=== PATIENT | female | born 1960 | race Caucasian/White ===

== ENCOUNTER 2023-08-18 21:03 | Emergency (ER) | payer OTHER, SELFPAY ==
[2023-08-18 21:07] VITALS: BP 180/92; PULSE 84; RESP 16; TEMP 36.6; O2SAT 100; BMI 22.0
--- NOTE | 2023-08-18 21:18 | XR_ITS ---
[facility] [id number] Patient Name: SULEMAN NICOLAS MRN: [id number] date: 1960 Sex: F Assigned Patient Location: ER Current Patient Location: ER Accession/Order Number: [id number] Exam Date: 08/18/2023 21:28 Report Date: 08/18/2023 21:53 At the request of: JEFF SAMANIEGO Procedure: XR knee LT 3V EXAM: XR knee LT 3V HISTORY: fall, twisted COMPARISON: None. TECHNIQUE: 3 views FINDINGS: IMPRESSION: Small knee effusion. No fracture, dislocation, subluxation or osseous lesion. Narrowing of the medial femoral tibial compartment with medial osteophytes. The patellofemoral and lateral femorotibial compartment are unremarkable. Electronically authenticated by: EDUARDO SOTOMAYOR Date: 08/18/2023 21:53
--- NOTE | 2023-08-18 21:19 | ED.LOWEXI1 ---
HPI - Extremity Injury (Lower) General Chief Complaint: Extremity Injury, Lower Stated Complaint: Lower Extremity Injury Time Seen by Provider: 08/18/23 21:06 Source: patient Mode of arrival: Wheelchair Limitations: no limitations History of Present Illness HPI Narrative: 62-year-old female presents for pain to her left knee. She slipped in a grocery store on a grape and twisted her left knee and scraped the right ceron area. It's been more than ten years since she had a tetanus shot. She didn't hit her head. She complains of pain to the inferior and medial aspect of the left knee primarily. Both hips and both ankles do not hurt. The right knee does not hurt. This happened just before coming into the emergency department. Related Data Home Medications Medication Instructions Recorded Confirmed metoprolol succinate 25 mg mg PO 08/18/23 tablet,extended release 24 hr Previous Rx's Medication Instructions Recorded ibuprofen 800 mg tablet 800 mg PO Q8H PRN pain #20 tabs 08/18/23 Allergies Allergy/AdvReac Type Severity Reaction Status Date / Time codeine AdvReac Mild Nausea Verified 08/18/23 21:12 Review of Systems ROS Narrative A ten point review of systems is negative except as noted above. Exam Narrative Exam Narrative: Nurses note and vital signs reviewed and patient is not hypoxic. General: The patient appears well and in no apparent distress. Patient is resting comfortably on cart. Skin: Warm, dry, no pallor noted. There is no rash noted. Head: Normocephalic, atraumatic Eye: Normal conjunctiva, no drainage Ears, Nose, Mouth, and Throat: oral mucosa is moist. Nares patent. Cardiovascular: Regular Rate and Rhythm Respiratory: Patient is in no distress, no accessory muscle use Back: non-tender GI: nontender Musculoskeletal: both hips, both ankles, and the right knee are nontender. She has an abrasion on the anterior surface of the right lower leg. The left knee is stable. There is no obvious deformity. No bruising or abrasion at the left knee. Neurological: A&O, normal speech Psychiatric: Cooperative Constitutional Vital Signs, click to edit/add: Last Vital Signs Temp 98 F 08/18/23 21:07 Pulse 84 08/18/23 21:07 Resp 16 08/18/23 21:07 BP 180/92 H 08/18/23 21:07 Pulse Ox 100 08/18/23 21:07 O2 Del Method Room Air 08/18/23 21:07 Course Vital Signs Vital signs: Vital Signs Temperature 98 F 08/18/23 21:07 Pulse Rate 84 08/18/23 21:07 Respiratory Rate 16 08/18/23 21:07 Blood Pressure 180/92 H 08/18/23 21:07 Pulse Oximetry 100 08/18/23 21:07 Oxygen Delivery Method Room Air 08/18/23 21:07 Temperature 98 F 08/18/23 21:07 Pulse Rate 84 08/18/23 21:07 Respiratory Rate 16 08/18/23 21:07 Blood Pressure 180/92 H 08/18/23 21:07 Pulse Oximetry 100 08/18/23 21:07 Oxygen Delivery Method Room Air 08/18/23 21:07 MDM - Extremity Injury (Lower) MDM Narrative Medical decision making narrative: x-ray showed degenerative changes. Cornelius wrap applied and application checked by me and found to be appropriate, she is neurovascularly intact. Tetanus was ordered but she refuses. Treatment diagnosis and follow-up were discussed with the patient and her . Differential Diagnosis Differential diagnosis: Likely acute internal derangement of knee and other (fracture) Imaging Data left knee x-ray: Radiologist's impression: Procedure: XR knee LT 3V EXAM: XR knee LT 3V HISTORY: fall, twisted COMPARISON: None. TECHNIQUE: 3 views FINDINGS: IMPRESSION: Small knee effusion. No fracture, dislocation, subluxation or osseous lesion. Narrowing of the medial femoral tibial compartment with medial osteophytes. The patellofemoral and lateral femorotibial compartment are unremarkable. Electronically authenticated by: EDUARDO SOTOMAYOR Date: 08/18/2023 21:53 Discharge Plan Discharge Chief Complaint: Extremity Injury, Lower Clinical Impression: Knee sprain, Abrasion of leg Patient Disposition: Home, Self-Care Time of Disposition Decision: 22:34 Condition: Good Prescriptions / Home Meds: New ibuprofen 800 mg tablet 800 mg PO Q8H PRN (Reason: pain) Qty: 20 0RF No Action metoprolol succinate 25 mg tablet extended release 24 hr PO Instructions: Knee Sprain (ED), Abrasion (ED) Additional Instructions: Follow-up with Dr. Arroyo Stand Alone Forms: Portal Instructions Referrals: LOLA DUNNE [Primary Care Provider] - 1 week
[2023-08-18 22:30] VITALS: BP 160/87; PULSE 80; RESP 16; O2SAT 97
[2023-08-18] MEDS: IBUPROFEN 400 MG TABLET 800 MG PO (22:36)
== END 2023-08-18 22:35 | disposition home or self-care (01) ==
PROVIDERS: Emergency Provider Emergency Medicine; PCP Internal Medicine
DX: S83.92XA Sprain of unspecified site of left knee, initial encounter (principal); S80.811A Abrasion, right lower leg, initial encounter; W18.30XA Fall on same level, unspecified, initial encounter; X50.1XXA Overexertion from prolonged static or awkward postures, initial encounter
CPT/HCPCS: 73562; 99284

== ENCOUNTER 2024-09-10 10:52 | Outpatient (OUT) | payer OTHER, SELFPAY ==
--- NOTE | 2024-09-10 10:55 | MM_ITS ---
Patient Name: SULEMAN NICOLAS MR#: [id number] : 1960 Exam Date: 09/10/2024 Ordering Doctor: DR LOLA DUNNE M.D. RADIOLOGY REPORT PROCEDURE: MM TOMOSYNTHESIS SCREENING BI COMPARISON: MG MAMM SCREEN 3D PIERRE CAD, 11/17/2021. MG MAMM PIERRE SCRN W CAD DIG, 09/14/2013. MG MAMM PIERRE SCRN W CAD DIG, 07/11/2008. MG MAMM PIERRE SCRN W CAD DIG, 05/12/2005. INDICATIONS: Screening Calculator Name NCI Breast Cancer Risk Assessment Tool 5 Year Breast Cancer Risk 2.80% Lifetime Breast Cancer Risk 12.50% Personal Breast Cancer No Personal Ovarian Cancer No Treatments None Family Cancers Mother with breast cancer at age 75. LOCATION: [facility] BREAST COMPOSITION: There are scattered areas of fibroglandular density. FINDINGS: DIAGNOSTIC CATEGORY 1--NEGATIVE. RIGHT BREAST: No significant suspicious finding. No significant change has occurred. LEFT BREAST: No significant suspicious finding. No significant change has occurred. RECOMMENDATIONS: ROUTINE MAMMOGRAM AND CLINICAL EVALUATION IN 12 MONTHS. PLEASE NOTE: A NORMAL MAMMOGRAM DOES NOT EXCLUDE THE POSSIBILITY OF BREAST CANCER. A CLINICALLY SUSPICIOUS PALPABLE LUMP SHOULD BE BIOPSIED. Dictated by: Rigo Mejia M.D. on 09/12/2024 at 13:20 Approved by: Rigo Mejia M.D. on 09/12/2024 at 13:22
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
== END 2024-09-10 10:53 | disposition home or self-care (01) ==
LOC: MAMMO 10:52
PROVIDERS: PCP Internal Medicine; Visit Provider Internal Medicine
DX: Z12.31 Encounter for screening mammogram for malignant neoplasm of breast (principal); Z80.3 Family history of malignant neoplasm of breast
CPT/HCPCS: 77063; 77067

== ENCOUNTER 2025-04-17 09:46 | Outpatient (OUT) | payer SELFPAY ==
--- OUTSIDE RECORDS SUMMARY | 2025-03-13 14:39 | XMS_ITS | Clinical Summary ---
Author Organization [facility] Address [address] [place] [address] Care Team Providers Care Materials Specialist Name Role Phone Chencho Dillard MD Primary Care Provider [phone] Chencho Dillard MD Unavailable [phone] Allergies Active Allergy Reactions Criticality Noted Date Comments Codeine Nausea Only 06/23/2023 Medications rosuvastatin (Crestor) 5 MG tabletIndications:Pure hypercholesterolemia Take 1 tablet (5 mg) by mouth Daily 90 tablet 3 024 Active Additional Information Patient not taking.Reported on 12/20/2024 metoprolol succinate XL (Toprol-XL) 25 MG 24 hr tabletIndications:Prima ry hypertension TAKE 1 TABLET BY MOUTH IN THE MORNING and ONE TABLET BY MOUTH BEFORE bedtime 100 tablet 3 025 Active Active Problems Problem Noted Date Diagnosed Date Primary osteoarthritis of left knee 09/08/2023 Pure hypercholesterolemia 09/08/2023 Chronic dacryocystitis 06/23/2023 History of hysterectomy 06/23/2023 Nuclear senile cataract 06/23/2023 Ocular hypertension 06/23/2023 Palpitations 06/23/2023 Primary hypertension 06/23/2023 Resolved Problems Problem Noted Date Diagnosed Date Resolved Date Type 2 diabetes mellitus wit hout complication, without long-term current use of insulin 07/27/2023 11/28/2024 Encounters Date Type Department Care Team Description 02/20/2025 Abstract [facility] [address] [place] [address] [place] [id number] Chencho Dillard MD 01/22/2025 Abstract [facility] [address] [place] [address] [place] [id number] Chencho Dillard MD 12/20/2024 10:00 AM EDT Office Visit [facility] [address] [address] [place] [id number] Chencho Dillard MD Pain of both shoulder joints (Primary Dx); Abnormal laboratory test result; Pain of shoulder girdle 12/20/2024 Bamboo flowsheet [facility] [address] [address] [place] [id number] Chencho Dillard MD 12/20/2024 Travel 12/19/2024 Travel from Last 3 Months Family History Medical History Relation Name Comments Heart disease Father Parent Diabetes Mother Parent Relation Name Status Comments Father Parent Mother Parent Alive Social History Tobacco Use Types Packs/Day Years Used Date Smoking Tobacco: Never Smokeless Tobacco: Never Tobacco Cessation:Counseling Given: Not Answered Alcohol Use Standard Drinks/Week Comments Not Currently 0 (1 standard drink = 0.6 oz pur e alcohol) B1300 Health Literacy Answer Date Recor ded How often do you need to hav e someone help you when you read instructions, pamphlets, or other written material from your doctor or pharmacy? Never 12/19/2024 Humiliation, Afraid, Rape, and Kick questionnair e Answer Date Recorded Within the last year, have y ou been afraid of your partner or ex-partner? Patient declined 12/19/2024 Within the last year, have y ou been humiliated or emotionally abused in other ways by your partner or ex-partner? Patient declined 12/19/2024 Within the last year, have y ou been kicked, hit, slapped, or otherwise physically hurt by your partner or ex-partner? Patient declined 12/19/2024 Within the last year, have y ou been raped or forced to have any kind of sexual activity by your partner or ex-partner? Patient declined 12/19/2024 Social Connection and Isolat ion Panel [NHANES] Answer Date Recorded In a typical week, how many times do you talk on the phone with family, friends, or neighbors? Once a week 12/19/2024 How often do you get togethe r with friends or relatives? Once a week 12/19/2024 How often do you attend chur ch or catholic services? More than 4 times per year 12/19/2024 Do you belong to any clubs o r organizations such as advent groups, unions, fraternal or athletic groups, or school groups? Yes 12/19/2024 How often do you attend meet ings of the clubs or organizations you belong to? More than 4 times per year 12/19/2024 Are you , , di vorced, , never , or living with a partner? 12/19/2024 AUDIT-C Answer Date Recorded Q1: How often do you have a drink containing alc ohol? Monthly or less 12/19/2024 Q2: How many drinks containi ng alcohol do you have on a typical day when you are drinking? 1 or 2 12/19/2024 Q3: How often do you have si x or more drinks on one occasion? Never 12/19/2024 Overall Financial Resource Strain (CARDIA) Answe r Date Recorded How hard is it for you to pa y for the very basics like food, housing, medical care, and heating? Somewhat hard 12/19/2024 PHQ-2 Answer Date Recorded Patient Health Questionnaire-2 Score 0 12/20/2024 [facility] - Occupational Stress Questionnaire Answer Date Recorded Do you feel stress - tense, restless, nervous, or anxious, or unable to sleep at night because your mind is troubled all the time - these days? Not at all 12/19/2024 Exercise Vital Sign Answer Date Recorde d On average, how many days pe r week do you engage in moderate to strenuous exercise (like a brisk walk)? 2 days 12/19/2024 On average, how many minutes do you engage in exercise at this level? 30 min 12/19/2024 Hunger Vital Sign Answer Date Recorded Within the past 12 months, y ou worried that your food would run out before you got the money to buy more. Never true 12/20/19 25 Within the past 12 months, t he food you bought just didn't last and you didn't have money to get more. Never true 12/19/2024 PRAPARE - Transportation Answer Date Re corded In the past 12 months, has l ack of transportation kept you from medical appointments or from getting medications? No 11/22 In the past 12 months, has l ack of transportation kept you from meetings, work, or from getting things needed for daily living? No 12/19/2024 Housing Stability Vital Sign Answer Epifanio e Recorded In the last 12 months, was t here a time when you were not able to pay the mortgage or rent on time? No 06/24/2023 Number of Places Lived in the Last Year Not on f ile 06/24/2023 In the last 12 months, was t here a time when you did not have a steady place to sleep or slept in a snf (including now)? No 06/24/2023 Housing Stability Vital Sign Answer Epifanio e Recorded In the last 12 months, was t here a time when you were not able to pay the mortgage or rent on time? Patient declined 12/20/19 25 Number of Times Moved in the Last Year Not on fi le 12/19/2024 At any time in the past 12 m [facility], were you homeless or living in a snf (including now)? Patient declined 12/19/2024 Comments Unknown Sex and Gender Information Value Date Recorded Sex Assigned at Not on file Legal Sex Female 7:11 PM EDT Gender Identity Not on file Sexual Orientation Not on file Last Filed Vital Signs Vital Sign Reading Time Taken Comments Blood Pressure 132/74 12/20/2024 9:56 AM EDT Pulse 92 12/20/2024 9:56 AM EDT Temperature - - Respiratory Rate - - Oxygen Saturation 99% 12/20/2024 9:56 AM EDT Inhaled Oxygen Concentration - - Weight 56.2 kg (124 lb) 12/20/2024 9:56 AM EDT Height 160 cm (5' 3 ) 12/20/2024 9:56 AM EDT Body Mass Index 21.97 12/20/2024 9:56 AM EDT Plan of Treatment Health Maintenance Due Date Last Done Comments CT Colonography 1961 FIT 1961 FOBT 1960 Sigmoidoscopy 1960 Colonoscopy 02/05/2024 02/04/2014 Diabetes: Hemoglobin A1C 02/27/2025 025, 06/07/2024, 12/12/2023, Additional history exists Influenza Vaccine (#1) 2025 Diabetes: Urine Protein Screening 06/08/2025 024, 09/08/2023 Mammogram 09/12/2025 09/12/2024, 03/2 04/2022, 11/18/2017, Additional history exists Diabetes: Retinopathy Screening 12/08/2025 Colorectal Cancer Screening 12/19/2027 FIT-DNA 12/19/2027 12/18/2024 Procedures Procedure Name Priority Date/Time Associated Diagnosis Comments LAB COLOGUARD COLON CANCER SCREEN Routine 12/18/2024 9:00 AM EDT Encounter for screening for malignant neoplasm of colon POCT GLYCATED HEMOGLOBIN, TOTAL Routine 11/28/2024 11:18 AM EDT Prediabetes MM TOMOSYNTHESIS SCREENING BI 09/12/2024 1:22 PM EST MICROALBUMIN / CREATININE URINE RATIO Routine 06/08/2024 8:46 AM EDT Type 2 diabetes mellitus without complication, without long-term current use of insulin (HCC) DIABETIC RETINOPATHY SCREENING - OU - BOTH EYES Routine 12/09/2023 COLONOSCOPY Routine 02/04/2014 12:00 PM EDT from Last 3 Months or Most Recently Relevant to Health Maintenance Results * Cologuard?? colon cancer screening (12/18/2024 9:00 AM EDT) NONINV COLON CA DNA+OCC BLD SCRN STL-IMP Negative Negative 12/24/2024 6:43 AM EDT [employer] (CLIA #:[id number]) Comment: The Cologuard (TM) test was performed on this specimen. NEGATIVE TEST RESULT. A negative Cologuard result indicates a low likelihood that a colorectal cancer (CRC) or advanced adenoma (adenomatous polyps with more advanced pre-malignant features) is present. The chance that a person with a negative Cologuard test has a colorectal cancer is less than 1 in 1500 (negative predictive value >99.9%) or has an advanced adenoma is less than 5.3% (negative predictive value 94.7%). These data are based on a prospective cross-sectional study of 10,000 individuals at average risk for colorectal cancer who were screened with both Cologuard and colonoscopy. (Ramirez Ortiz al, N Engl J Med 2014;370(14):1286- 1297) The normal value (reference range) for this assay is negative. COLOGUARD RE-SCREENING RECOMMENDATION: Periodic colorectal cancer screening is an important part of preventive healthcare for asymptomatic individuals at average risk for colorectal cancer. Following a negative Cologuard result, the [place] [employer] and U.S. Multi-Society Task Force screening guidelines recommend a Cologuard re-screening interval of 3 years. References: [place] [employer] Guideline for Colorectal Cancer Screening: https://www.cancer.org/cancer/jqund-lbsajs-utglox/tbtcizsdt-irhhhrflc-xdjpzvj/ac s-rec ommendations.html.; Rich DK, Aki CHARLES, Grisel WinnK, Colorectal Cancer Screening: Recommendations for Physicians and Patients from the U.S. Multi-Society Task Force on Colorectal Cancer Screening , Am J Gastroenterology 2017; 112:6571-1755. TEST DESCRIPTION: Composite algorithmic analysis of stool DNA-biomarkers with hemoglobin immunoassay. Quantitative values of individual biomarkers are not reportable and are not associated with individual biomarker result reference ranges. Cologuard is intended for colorectal cancer screening of adults of either sex, 45 years or older, who are at average-risk for colorectal cancer (CRC). Cologuard has been approved for use by the U.S. FDA. The performance of Cologuard was established in a cross sectional study of average-risk adults aged 50-84. Cologuard performance in patients ages 45 to 49 years was estimated by sub-group analysis of near-age groups. Colonoscopies performed for a positive result may find as the most clinically significant lesion: colorectal cancer [4.0%], advanced adenoma (including sessile serrated polyps greater than or equal to 1cm diameter) [20%] or non- advanced adenoma [31%]; or no colorectal neoplasia [45%]. These estimates are derived from a prospective cross-sectional screening study of 10,000 individuals at average risk for colorectal cancer who were screened with both Cologuard and colonoscopy. (Ramirez Salcedo et al, N Engl J Med 2014;370(14):0702-4405.) Cologuard may produce a false negative or false positive result (no colorectal cancer or precancerous polyp present at colonoscopy follow up). A negative Cologuard test result does not guarantee the absence of CRC or advanced adenoma (pre-cancer). The current Cologuard screening interval is every 3 years. ([place] [employer] and U.S. Multi-Society Task Force). Cologuard performance data in a 10,000 patient pivotal study using colonoscopy as the reference method can be accessed at the following location: www.[employer].com/results. Additional description of the Cologuard test process, warnings and precautions can be found at www.cologuard.com. Stool specimen (specimen) 12/18/2024 9:00 AM EDT 12/19/2024 1:04 PM EDT us Chencho Dillard MD LAB MOLECULAR DIAGNOSTICS [facility] Final Result .[employer] (CLIA #:[id number]) [address] [address], [employer] (CLIA #:[id number]) [address] [place] [address] * POCT Glycated hemoglobin, total (11/28/2024 11:18 AM EDT) Hemoglobin A1C 5.8 Blood 11/28/2024 11:1 8 AM EDT us Chencho Dillard MD POINT OF CARE TEST ENTER/EDIT ORDERABLES Final Result * MM TOMOSYNTHESIS SCREENING BI (09/12/2024 1:22 PM EST) Anatomical Region Laterality Modality Other 09/12/2024 1:22 PM EST Narrative 09/12/2024 1:23 PM EST [facility] [place] [id number] Mammography Report Signed Patient: SULEMAN NICOLAS MR#: [id number] : 1960 Acct:[id number] Age/Sex: 63 / F ADM Date: 09/10/24 Loc: MAMMO Attending Dr: CHENCHO DILLARD Ordering Physician: CHENCHO DILLARD Results: Date of Service: 09/10/24 Follow Up: Procedure(s): MM tomosynthesis screening BI Accession Number(s): [id number] cc: VIBHANEVAEHCHENCHO Patient Name: SULEMAN NICOLAS MR#: [id number] : 1960 Exam Date: 09/10/2024 Ordering Doctor: DR CHENCHO DILLARD M.D. RADIOLOGY REPORT PROCEDURE: MM TOMOSYNTHESIS SCREENING BI COMPARISON: MG MAMM SCREEN 3D PIERRE CAD, 11/17/2021. MG MAMM PIERRE SCRN W CAD DIG, 09/14/2013. MG MAMM PIERRE SCRN W CAD DIG, 07/11/2008. MG MAMM PIERRE SCRN W CAD DIG, 05/12/2005. INDICATIONS: Screening Calculator Name NCI Breast Cancer Risk Assessment Tool 5 Year Breast Cancer Risk 2.80% Lifetime Breast Cancer Risk 12.50% Personal Breast Cancer No Personal Ovarian Cancer No Treatments None Family Cancers Mother with breast cancer at age 75. LOCATION: [facility] BREAST COMPOSITION: There are scattered areas of fibroglandular density. FINDINGS: DIAGNOSTIC CATEGORY 1--NEGATIVE. RIGHT BREAST: No significant suspicious finding. No significant change has occurred. LEFT BREAST: No significant suspicious finding. No significant change has occurred. RECOMMENDATIONS: ROUTINE MAMMOGRAM AND CLINICAL EVALUATION IN 12 MONTHS. PLEASE NOTE: A NORMAL MAMMOGRAM DOES NOT EXCLUDE THE POSSIBILITY OF BREAST CANCER. A CLINICALLY SUSPICIOUS PALPABLE LUMP SHOULD BE BIOPSIED. Dictated by: Rigo Mejia M.D. on 09/12/2024 at 13:20 Approved by: Rigo Mejia M.D. on 09/12/2024 at 13:22 Dictated By: Rigo Mejia M.D. Signed By: 09/12/24 1323 DD/ 1322 TD/TT: Press Operator Helper: Procedure Note Radiology, Radiologist, MD - 09/12/2024 [place] [address] Mammography Report Signed Patient: SULEMAN NICOLAS LMR#: [id number] : 1960cct:[id number] Age/Sex: 63 / FADM Date: 09/10/24 Loc: MAMMO Attending Dr: CHENCHO DILLARD Ordering Physician: CHENCHO DILLARDResults: Date of Service: 09/10/24Follow Up: Procedure(s): MM tomosynthesis screening BI Accession Number(s): [id number] cc: VIBHANEVAEHCHENCHO Patient Name: SULEMAN NICOLAS MR#: [id number] : 1960 Exam Date: 09/10/2024 Ordering Doctor: DR CHENCHO DILLARD M.D. RADIOLOGY REPORT PROCEDURE: MM TOMOSYNTHESIS SCREENING BI COMPARISON: MG MAMM SCREEN 3D PIERRE CAD, 11/17/2021. MG MAMM PIERRE SCRN WCAD DIG, 09/14/2013. MG MAMM PIERRE SCRN W CAD DIG, 07/11/2008. MG MAMM PIERRE SCRNW CAD DIG, 05/12/2005. INDICATIONS: Screening Calculator Name NCI Breast Cancer Risk Assessment Tool 5 Year Breast Cancer Risk 2.80% Lifetime Breast Cancer Risk 12.50% Personal Breast Cancer No Personal Ovarian Cancer No Treatments None Family Cancers Mother with breast cancer at age 75. LOCATION: [facility] BREAST COMPOSITION: There are scattered areas of fibroglandulardensity. FINDINGS: DIAGNOSTIC CATEGORY 1--NEGATIVE. RIGHT BREAST: No significant suspicious finding. No significant changehas occurred. LEFT BREAST: No significant suspicious finding. No significant changehas occurred. RECOMMENDATIONS: ROUTINE MAMMOGRAM AND CLINICAL EVALUATION IN 12 MONTHS. PLEASE NOTE: A NORMAL MAMMOGRAM DOES NOT EXCLUDE THE POSSIBILITY OFBREAST CANCER. A CLINICALLY SUSPICIOUS PALPABLE LUMP SHOULD BE BIOPSIED. Dictated by: Rigo Mejia M.D. on 09/12/2024 at 13:20 Approved by: Rigo Mejia M.D. on 09/12/2024 at 13:22 Dictated By: Rigo Mejia M.D. Signed By:09/12/24 1323 DD/ 1322 TD/TT: Press Operator Helper: us Chencho Dillard MD [facility] Final Result * Microalbumin / creatinine urine ratio (06/08/2024 8:46 AM EDT) CREATININE, RANDOM URINE 70 20 - 275 mg/dL [facility] ALBUMIN, URINE 0.6 See Note: mg/dL [facility] Comment: Reference Range: Reference Range Not established ALBUMIN/CREATININE RATIO, RANDOM URINE 9 <30 mg/g creat [facility] Comment: The ADA defines abnormalities in albumin excretion as follows: Albuminuria Category Result (mg/g creatinine) Normal to Mildly increased <30 Moderately increased 30-299 Severely increased > OR = 300 The ADA recommends that at least two of three specimens collected within a 3-6 month period be abnormal before considering a patient to be within a diagnostic category. Urine Urine specimen obtained by clean catch procedure / Unknown 06/08/2024 8:46 AM EDT 06/08/2024 3:17 PM EDT Narrative Resulting Agency Comment Performing Organization Information Site ID: QPT Name: [facility] [employer] [facility] Address: [address] [place] [address], [address] [place] [id number] Director: Sebastian Urbano MD us Chencho Dillard MD LAB URINE ORDERABLES Final Res ult Performing Organization Address City/State/[facility] Co de Phone Number [facility] * Diabetic Retinopathy Screening - OU - Both Eyes (12/09/2023) RESULTS NDR Anatomical Region Laterality Modality Head Other 12/09/2023 us Chencho Dillard MD OPHTH PHOTOGRAPHY Final Result * Colonoscopy (02/04/2014 12:00 PM EDT) Anatomical Region Laterality Modality Endoscopy 02/04/2014 12:0 0 PM EDT Narrative 02/04/2014 12:00 PM EDT PERFORMED AT [facility] LOCATION:[id number] IBS,divericulosis,int,hemorrhoid Procedure Note CONVERSION, GENERIC - 01/06/[address] [facility] LOCATION:[id number] IBS,divericulosis,int,hemorrhoid us Generic Conversion MD ENDOSCOPY PROCEDURE ORDERA BLES Final Result from Last 3 Months or Most Recently Relevant to Health Maintenance Insurance [employer] Care Teams Materials Specialist Relationship Specialty Start Date End Date Chencho Dillard MD [address] [facility] [address] [place] [address] PCP - General Internal Medicine 12/28/22 Chencho Dillard MD [address] [facility] [address] [place] [address] PCP - Medical [place] [employer] 08/22/23 08/21/99
--- OUTSIDE RECORDS SUMMARY | 2025-03-13 14:39 | XMS_ITS | Encounter Summary ---
Author Organization [facility] Address [address] [place] [address] Care Team Providers Care Microbiology Supervisor Name Role Phone Chencho Dillard MD Primary Care Provider [phone] Chencho Dillard MD Unavailable [phone] Encounter Details Date Type Department Care Team (Late st Contact Info) Description 01/22/2025 Abstract [facility] [address] [facility] [address] [place] [id number] Chencho Dillard MD [address] [facility] [address] [place], [place] [id number] Social History Tobacco Use Types Packs/Day Years Used Date Smoking Tobacco: Never Smokeless Tobacco: Never Alcohol Use Standard Drinks/Week Comments Not Currently [...] 12/19/2024 How often do you attend chur or druze services? More than 4 times per year 12/19/2024 Do you belong to any clubs o r organizations such as sabianist groups, unions, fraternal or athletic groups, or [...] Recorded Patient Health Questionnaire-2 Score 0 12/20/2024 [facility] Occup[facility] ional Health - Occupational Stress [...] place to sleep or slept in a half-way (including now)? No 06/24/2023 Housing Stability Vital Sign Answer Epifanio e Recorded In the last 12 months, was t here a time when you were not able to pay the mortgage or rent on time? Patient declined 12/20/19 25 Number of Times Moved in the Last Year Not on fi le 12/19/2024 At any time in the past 12 m [facility], were you homeless or living in a half-way (including now)? Patient declined 12/19/2024 Comments Unknown Sex and Gender Information Value Date Recorded Sex Assigned at Not on file Legal Sex Female 7:11 PM EDT Gender Identity Not on file Sexual Orientation Not on file documented as of this encounter Plan of Treatment Not on file documented as of this encounter Visit Diagnoses Not on filedocumented in this encounter Care Teams Microbiology Supervisor Relationship Specialty Start Date End Date Chencho Dillard MD [address] [facility] [address] [place] [address] PCP - General Internal Medicine 12/28/22 Chencho Dillard MD [address] [facility] [address] [place] [address] PCP - Medical [place] [employer] 08/22/23 08/21/99 documented as of this encounter
--- OUTSIDE RECORDS SUMMARY | 2025-03-13 14:39 | XMS_ITS | Encounter Summary ---
Author Organization [facility] Address [address] [place] [address] Care Team Providers Care Shopper'S Aide Name Role Phone Chencho Dillard MD Primary Care Provider [phone] Chencho Dillard MD Unavailable Encounter Details Date Type Department Care Team (Late st Contact Info) Description 12/13/2023 Abstract [facility] [address] [facility] 110 [place] [id number] Chencho Dillard MD [address] [facility] 110 [place], [place] [id number] Social History Tobacco Use Types Packs/Day Years Used Date Smoking Tobacco: Never Smokeless Tobacco: Never Alcohol Use Standard Drinks/Week Comments Not Currently 0 (1 standard drink = 0.6 oz pur e alcohol) Humiliation, Afraid, Rape, and Kick questionnair e Answer Date Recorded Within the last year, have y ou been afraid of your partner or ex-partner? Patient declined 06/24/2023 Within the last year, have y ou been humiliated or emotionally abused in other ways by your partner or ex-partner? Yes 06/24/2023 Within the last year, have y ou been kicked, hit, slapped, or otherwise physically hurt by your partner or ex-partner? Patient declined 06/24/2023 Within the last year, have y ou been raped or forced to have any kind of sexual activity by your partner or ex-partner? Patient declined 06/24/2023 Social Connection and Isolat ion Panel [NHANES] Answer Date Recorded In a typical week, how many times do you talk on the phone with family, friends, or neighbors? More than three times a week 06/24/2023 How often do you get togethe r with friends or relatives? Twice a week 06/24/2023 How often do you attend chur ch or presybeterian services? More than 4 times per year 06/24/2023 Do you belong to any clubs o r organizations such as methodist groups, unions, fraternal or athletic groups, or school groups? Yes 06/24/2023 How often do you attend meet ings of the clubs or organizations you belong to? More than 4 times per year 06/24/2023 Are you , , di vorced, , never , or living with a partner? 06/24/2023 AUDIT-C Answer Date Recorded Q1: How often do you have a drink containing alc ohol? 2-4 times a month 06/24/2023 Q2: How many drinks containi ng alcohol do you have on a typical day when you are drinking? 1 or 2 06/24/2023 Q3: How often do you have si x or more drinks on one occasion? Never 06/24/2023 Overall Financial Resource Strain (CARDIA) Answe r Date Recorded How hard is it for you to pa y for the very basics like food, housing, medical care, and heating? Not very hard 06/24/2023 [facility] - Occupational Stress Questionnaire Answer Date Recorded Do you feel stress - tense, restless, nervous, or anxious, or unable to sleep at night because your mind is troubled all the time - these days? Not at all 06/24/2023 Exercise Vital Sign Answer Date Recorde d On average, how many days pe r week do you engage in moderate to strenuous exercise (like a brisk walk)? 1 day 06/24/2023 On average, how many minutes do you engage in exercise at this level? 50 min 06/24/2023 Hunger Vital Sign Answer Date Recorded Within the past 12 months, y ou worried that your food would run out before you got the money to buy more. Patient declined Within the past 12 months, t he food you bought just didn't last and you didn't have money to get more. Patient declined 10/2022 PRAPARE - Transportation Answer Date Re corded In the past 12 months, has l ack of transportation kept you from medical appointments or from getting medications? No 10/2022 In the past 12 months, has l ack of transportation kept you from meetings, work, or from getting things needed for daily living? No 06/24/2023 Housing Stability Vital Sign Answer [...] place to sleep or slept in a alf (including now)? No 06/24/2023 Comments Unknown Sex and Gender Information Value Date Recorded Sex Assigned at Not on file Legal Sex Female 7:11 PM EDT Gender Identity Not on file Sexual Orientation Not on file documented as of this encounter Plan of Treatment Not on file documented as of this encounter Visit Diagnoses Not on filedocumented in this encounter Care Teams Shopper'S Aide Relationship Specialty Start Date End Date Chencho Dillard MD [address] [facility] 110 [place] [address] PCP - General Internal Medicine 12/28/22 Chencho Dillard MD [address] [facility] [address] [place] [address] PCP - Medical [employer] 08/22/23 08/21/99 documented as of this encounter
--- OUTSIDE RECORDS SUMMARY | 2025-03-13 14:39 | XMS_ITS | Encounter Summary ---
Author Organization [facility] Address [address] [place] [address] Care Team Providers Care Fur Dry Cleaner Hand Name Role Phone Chencho Dillard MD Primary Care Provider [phone] Chencho Dillard MD Unavailable [phone] Encounter Details Date Type Department Care Team (Late st Contact Info) Description 09/12/2024 Clinisync Result Encounter [facility] External Department Unsolicited Chencho Dillard MD [address] [facility] 110 [place] [address] Social History Tobacco Use Types Packs/Day Years [...] 06/24/2023 How often do you attend chur or confucianist services? More than 4 times per year 06/24/2023 Do you belong to any clubs o r organizations such as confucianism groups, unions, fraternal or athletic groups, or [...] care, and heating? Not very hard 06/24/2023 [facility]at ional Health [...] place to sleep or slept in a mcfp (including now)? No 06/24/2023 Comments Unknown Sex and Gender Information Value Date Recorded Sex Assigned at Not on file Legal Sex Female 7:11 PM EDT Gender Identity Not on file Sexual Orientation Not on file documented as of this encounter Plan of Treatment Not on file documented as of this encounter Procedures Procedure Name Priority Date/Time Associated Diagnosis Comments MM TOMOSYNTHESIS SCREENING BI 09/12/2024 1:22 PM EST documented in this encounter Results * MM TOMOSYNTHESIS SCREENING BI (09/12/2024 1:22 PM EST) Anatomical Region Laterality Modality Other 09/12/2024 1:22 PM EST Narrative 09/12/2024 1:23 [place] [address] Mammography Report Signed Patient: SULEMAN NICOLAS MR#: [id number] : 1960 Acct:[id number] Age/Sex: 63 / F ADM Date: 09/10/24 Loc: MAMMO Attending Dr: CHENCHO DILLARD Ordering Physician: CHENCHO DILLARD Results: Date of Service: 09/10/24 Follow Up: Procedure(s): MM tomosynthesis screening BI Accession Number(s): [id number] cc: CHENCHO DILLARD Patient Name: SULEMAN NICOLAS MR#: [id number] : 1960 Exam Date: 09/10/2024 Ordering Doctor: [...] breast cancer at age 76. LOCATION: [facility] BREAST COMPOSITION: There are scattered areas [...] Signed By: 09/12/24 1323 DD/ 1322 TD/TT: Automated Weaver: Procedure Note Radiology, Radiologist, MD - 09/12/2024 [place] [address] Mammography Report Signed Patient: SULEMAN NICOLAS LMR#: [id number] : 1960cct:[id number] Age/Sex: 63 / FADM Date: 09/10/24 Loc: MAMMO Attending Dr: CHENCHO DILLARD Ordering Physician: CHENCHO DILLARDResults: Date of Service: 09/10/24Follow Up: Procedure(s): MM tomosynthesis screening BI Accession Number(s): [id number] cc: CHENCHO DILLARD Patient Name: SULEMAN NICOLAS MR#: [id number] : 1960 Exam Date: 09/10/2024 Ordering Doctor: [...] breast cancer at age 76. LOCATION: [facility] BREAST COMPOSITION: There are scattered areas [...] M.D. Signed By:09/12/24 1323 DD/ 1322 TD/TT: Automated Weaver: Chencho Dillard MD [facility] Final Result documented in this encounter Visit Diagnoses Not on filedocumented in this encounter Care Teams Fur Dry Cleaner Hand Relationship Specialty Start Date End Date Chencho Dillard MD [address] [facility] 110 [place] [address] PCP - General Internal Medicine 12/28/22 Chencho Dillard MD [address] [facility] 110 [place] [address] PCP - Medical [place] [employer] 08/22/23 08/21/99 documented as of this encounter
--- OUTSIDE RECORDS SUMMARY | 2025-03-13 14:39 | XMS_ITS | Clinical Summary ---
Author Organization [employer] s [employer] Address [id number] [address] [place] [address] Care Team Providers Care Import Customer Service Manager Name Role Phone Chencho Dillard MD Primary Care Provider [phone] Allergies No known active allergies Medications No known medications Family History Medical History Relation Name Comments Breast cancer Mother Relation Name Status Comments Mother Social History Tobacco Use Types Packs/Day Years Used Date Smoking Tobacco: Never Assessed Childcare Answer Date Recorded Childcare Unknown 01/31/2019 Employment Answer Date Recorded Employment Unknown 01/31/2019 Purpose - Life Answer Date Recorded Purpose and direction in life Unknown Comments No Sex and Gender Information Value Date Recorded Sex Assigned at Not on file Legal Sex Female 11:26 AM EDT Gender Identity Not on file Sexual Orientation Not on file Last Filed Vital Signs Vital Sign Reading Time Taken Comments Blood Pressure 169/73 06/25/2021 5:52 PM EDT Pulse 102 06/25/2021 7:57 PM EDT Temperature 37.7 C (99.9 F) 06/25/2021 5:52 PM EDT Respiratory Rate 19 06/25/2021 7:57 PM EDT Oxygen Saturation 98% 06/25/2021 7:57 PM EDT Inhaled Oxygen Concentration - - Weight 56.2 kg (124 lb) 06/25/2021 5:52 PM EDT Height 160 cm (5' 3 ) 06/25/2021 5:52 PM EDT Body Mass Index 21.97 06/25/2021 5:52 PM EDT Plan of Treatment Health Maintenance Due Date Last Done Comments Depression Screening 1973 Tobacco Screening 1973 Adult BMI Screening 1979 DTaP,Tdap and Td Vaccines (1 - Tdap) 1980 Zoster (Shingles) Vaccine (1 of 2) 2011 Influenza Vaccine 04/22/2025 [employer] Not on file Insurance [place] [facility] Care Teams Import Customer Service Manager Relationship Specialty Start Date End Date Chencho Dillard MD [facility] 110 [place] [phone] PCP - General Internal Medicine 11/18/17
--- OUTSIDE RECORDS SUMMARY | 2025-03-13 14:39 | XMS_ITS | Encounter Summary ---
Author Organization [facility] Address [address] [place] [address] Care Team Providers Care Assistant Professor Of Biology Name Role Phone Chencho Dillard MD Primary Care Provider [phone] Chencho Dillard MD Unavailable [phone] Encounter Details Date Type Department Care Team (Late st Contact Info) Description 07/28/2023 Abstract [facility] [address] [facility] 110 [place] [phone] Chencho Dillard MD [address] [facility] 110 [place] [address] Social History Tobacco Use Types Packs/Day Years [...] often do you attend chur ch or yazidi services? More than 4 times per year 06/24/2023 Do you belong to any clubs o r organizations such as jew groups, unions, fraternal or athletic groups, or [...] care, and heating? Not very hard 06/24/2023 [facility] Occupat ional Health - [...] place to sleep or slept in a halfway (including now)? No 06/24/2023 Comments Unknown Sex and Gender Information Value Date Recorded Sex Assigned at Not on file Legal Sex Female 7:11 PM EDT Gender Identity Not on file Sexual Orientation Not on file COVID-19 Exposure Response Date Recorded In the last 10 days, have yo u been in contact with someone who was confirmed or suspected to have Coronavirus/COVID-19? No / Unsure 07/20/2023 8:54 AM EST documented as of this encounter Plan of Treatment Not on file documented as of this encounter Visit Diagnoses Not on filedocumented in this encounter Care Teams Assistant Professor Of Biology Relationship Specialty Start Date End Date Chencho Dillard MD [address] [facility] 110 [place] [address] PCP - General Internal Medicine 12/28/22 Chencho Dillard MD [address] [facility] 110 [place] [address] PCP - Medical [place] [employer] 08/22/23 08/21/99 documented as of this encounter
--- OUTSIDE RECORDS SUMMARY | 2025-03-13 14:39 | XMS_ITS | Encounter Summary ---
Author Organization [facility] Address [address] [place] [address] Care Team Providers Care Home Visitor Home Base Head Start Name Role Phone Chencho Dillard MD Primary Care Provider [phone] Chencho Dillard MD Unavailable [phone] Encounter Details Date Type Department Care Team (Late st Contact Info) Description 12/13/2023 Abstract [facility] [address] [facility] 110 [place] [phone] Chencho Dillard MD [address] [facility] 110 [place], [place] [id number] Social History Tobacco Use Types Packs/Day Years [...] often do you attend chur ch or alevism services? More than 4 times per year 06/24/2023 Do you belong to any clubs o r organizations such as religion groups, unions, fraternal or athletic groups, or [...] care, and heating? Not very hard 06/24/2023 [facility] - Occupational Stress [...] in a half-way (including now)? No 06/24/2023 Comments Unknown Sex and Gender Information Value Date Recorded Sex Assigned at Not on file Legal Sex Female 7:11 PM EDT Gender Identity Not on file Sexual Orientation Not on file documented as of this encounter Plan of Treatment Not on file documented as of this encounter Visit Diagnoses Not on filedocumented in this encounter Care Teams Home Visitor Home Base Head Start Relationship Specialty Start Date End Date Chencho Dillard MD [address] [facility] 110 [place] [address] PCP - General Internal Medicine 12/28/22 Chencho Dillard MD [address] [facility] [address] [place] [address] PCP - Medical [place] [employer] 08/22/23 08/21/99 documented as of this encounter
--- OUTSIDE RECORDS SUMMARY | 2025-03-13 14:39 | XMS_ITS | Encounter Summary ---
Author Organization [facility] Address [address] [place] [address] Care Team Providers Care Manager Medicare Marketing Name Role Phone Chencho Dillard MD Primary Care Provider [phone] Chencho Dillard MD Unavailable [phone] Encounter Details Date Type Department Care Team (Late st Contact Info) Description 08/09/2024 Abstract [facility] [address] [facility] 110 [place] [phone] Chencho Dillard MD [address] [facility] 110 [place], [place] [phone] Social History Tobacco Use Types Packs/Day Years [...] any clubs o r organizations such as jainism groups, unions, fraternal or athletic groups, or [...] care, and heating? Not very hard 06/24/2023 [facility] of Occupat ional Health - Occupational Stress [...] on filedocumented in this encounter Care Teams Manager Medicare Marketing Relationship Specialty Start Date End Date Chencho Dillard MD [address] [facility] 110 [place] [address] PCP - General Internal Medicine 12/28/22 Chencho Dillard MD [address] [facility] [address] [place] [address] PCP - Medical [place] [employer] 08/22/23 08/21/99 documented as of this encounter
--- OUTSIDE RECORDS SUMMARY | 2025-03-13 14:40 | XMS_ITS | Encounter Summary ---
Author Organization [facility] Address [address] [facility] [place] [address] Care Team Providers Care Process Improvement Consultant Name Role Phone Chencho Dillard MD Primary Care Provider [phone] Chencho Dillard MD Unavailable [phone] Encounter Details Date Type Department Care Team (Late st Contact Info) Description 08/19/2023 Orders Only [facility] [address] [facility] [address] [place] [address] A, Unknown Practice [address] [place] [phone] Social History Tobacco Use Types Packs/Day Years [...] often do you attend chur ch or latter-day services? More than 4 times per year 06/24/2023 Do you belong to any clubs o r organizations such as baptism groups, unions, fraternal or athletic groups, or [...] care, and heating? Not very hard 06/24/2023 [facility] Occupat ional Health - Occupational [...] place to sleep or slept in a fdc (including now)? No 06/24/2023 Comments Unknown Sex [...] Procedure Name Priority Date/Time Associated Diagnosis Comments XR KNEE 3 VIEWS LEFT Routine 08/18/2023 8:12 AM EST documented in this encounter Results * XR knee 3 views left (08/18/2023 8:12 AM EST) Anatomical Region Laterality Modality Lower Extremities, Knee [facility] Practice A IMG XR PROCEDURES Final Resul t documented in this encounter Visit Diagnoses Not on filedocumented in this encounter Care Teams Process Improvement Consultant Relationship Specialty Start Date End Date Chencho Dillard MD [address] [facility] [address] [place] [address] PCP - General Internal Medicine 12/28/22 Chencho Dillard MD [address] [facility] [address] [place] [address] PCP - Medical [place] [employer] 08/22/23 08/21/99 documented as of this encounter
--- OUTSIDE RECORDS SUMMARY | 2025-03-13 14:40 | XMS_ITS | Encounter Summary ---
Author Organization [facility] Address [address] [place] [address] Care Team Providers Care Pelt Dropper Name Role Phone Chencho Dillard MD Primary Care Provider [phone] Chencho Dillard MD Unavailable [phone] Encounter Details Date Type Department Care Team (Late st Contact Info) Description 02/20/2025 Abstract [facility] [address] [facility] 110 [place] [phone] Chencho Dillard MD [address] [facility] 110 [place], [place] [phone] Social History Tobacco Use Types Packs/Day Years [...] How often do you attend chur or quaker services? More than 4 times per year [...] Recorded Patient Health Questionnaire-2 Score 0 12/20/2024 [facility] Occupat ional Health - Occupational [...] place to sleep or slept in a residential (including now)? No 06/24/2023 Housing Stability Vital Sign Answer Epifanio e Recorded In the last 12 months, was t here a time when you were not able to pay the mortgage or rent on time? Patient declined 12/20/19 25 Number of Times Moved in the Last Year Not on fi le 12/19/2024 At any time in the past 12 m [facility], were you homeless or living in a residential (including now)? Patient declined 12/19/2024 Comments Unknown Sex and Gender Information Value Date Recorded Sex Assigned at Not on file Legal Sex Female 7:11 PM EDT Gender Identity Not on file Sexual Orientation Not on file documented as of this encounter Plan of Treatment Not on file documented as of this encounter Visit Diagnoses Not on filedocumented in this encounter Care Teams Pelt Dropper Relationship Specialty Start Date End Date Chencho Dillard MD [address] [facility] 110 [place] [address] PCP - General Internal Medicine 12/28/22 Chencho Dillard MD [address] [facility] 110 [place] [address] PCP - Medical [place] [employer] 08/22/23 08/21/99 documented as of this encounter
--- OUTSIDE RECORDS SUMMARY | 2025-03-13 14:40 | XMS_ITS | Encounter Summary ---
Author Organization [facility] Address [address] [place] [address] Care Team Providers Care Material Manager Name Role Phone Chencho Dillard MD Primary Care Provider [phone] Chencho Dillard MD Unavailable Encounter Details Date Type Department Care Team (Late st Contact Info) Description 08/19/2023 Abstract [facility] [address] [facility] 110 [place] [phone] Chencho Dillard MD [address] [facility] 110 [place] [address] Social History Tobacco Use Types Packs/Day Years [...] often do you attend chur ch or episcopalian services? More than 4 times per year 06/24/2023 Do you belong to any clubs o r organizations such as temple groups, unions, fraternal or athletic groups, or [...] care, and heating? Not very hard 06/24/2023 [facility] Occupat ional Health - Occupational Stress [...] place to sleep or slept in a intermediate (including now)? No 06/24/2023 Comments Unknown Sex [...] on filedocumented in this encounter Care Teams Material Manager Relationship Specialty Start Date End Date Chencho Dillard MD [address] [facility] 110 [place] [address] PCP - General Internal Medicine 12/28/22 Chencho Dillard MD [address] [facility] 110 [place] [address] PCP - Medical [place] [employer] 08/22/23 08/21/99 documented as of this encounter
--- NOTE | 2025-04-17 09:47 | XR_ITS ---
[address] [place] [id number] Patient Name: SULEMAN NICOLAS MRN: [id number] date: 1960 Sex: F Assigned Patient Location: [facility] Current Patient Location: [facility] Accession/Order Number: [id number] Exam Date: 04/17/2025 10:02 Report Date: 04/17/2025 11:01 At the request of: JAYNE WHYTE Procedure: XR chest 2V PA AND LATERAL CHEST: CLINICAL HISTORY: Muscle Pain, Elevated CRP COMPARISON: None There is no focal parenchymal consolidation, effusion or pneumothorax. The cardiac, hilar and mediastinal silhouettes are within normal limits. There is no vascular congestion. The visualized bony thorax is intact. Mild endplate spurring is present at the spine. XR/XR chest 2V IMPRESSION: NO ACUTE CARDIOPULMONARY ABNORMALITY. Impression dictated by: Macie Lanza M.D. 04/17/2025 11:01 AM Dictation Location: [place] [address] Electronically authenticated by: [id number] Y Date: 04/17/2025 11:01
--- OUTSIDE RECORDS SUMMARY | 2025-04-17 09:48 | XMS_ITS | Encounter Summary ---
Author Organization [facility] Address [address] [facility] [place] [address] Care Team Providers Care Protective Signal Operations Supervisor Name Role Phone Chencho Dillard MD Primary Care Provider [phone] Chencho Dillard MD Unavailable [phone] Encounter Details Date Type Department Care Team (Late st Contact Info) Description 01/22/2025 Abstract [facility] [address] [facility] 110 [place] [phone] Chencho Dillard MD [address] [facility] 110 [place] [address] Social History Tobacco Use Types Packs/Day Years [...] How often do you attend chur or tenriism services? More than 4 times per year 12/19/2024 Do you belong to any clubs o r organizations such as yazidism groups, unions, fraternal or athletic groups, or [...] Recorded Patient Health Questionnaire-2 Score 0 12/20/2024 [facility] Occupat ional Health - Occupational [...] place to sleep or slept in a custodial (including now)? No 06/24/2023 Housing Stability Vital Sign Answer Epifanio e Recorded In the last 12 months, was t here a time when you were not able to pay the mortgage or rent on time? Patient declined 12/20/19 25 Number of Times Moved in the Last Year Not on fi le 12/19/2024 At any time in the past 12 m [facility], were you homeless or living in a custodial (including now)? Patient declined 12/19/2024 Comments Unknown Sex and Gender Information Value Date Recorded Sex Assigned at Not on file Legal Sex Female 7:11 PM EDT Gender Identity Not on file Sexual Orientation Not on file documented as of this encounter Plan of Treatment Not on file documented as of this encounter Visit Diagnoses Not on filedocumented in this encounter Care Teams Protective Signal Operations Supervisor Relationship Specialty Start Date End Date Chencho Dillard MD [address] [facility] 110 [place] [address] PCP - General Internal Medicine 12/28/22 Chencho Dillard MD [address] [facility] 110 [place] [address] PCP - Medical [place] [employer] 08/22/23 08/21/99 documented as of this encounter
--- OUTSIDE RECORDS SUMMARY | 2025-04-17 09:48 | XMS_ITS | Encounter Summary ---
Author Organization [facility] Address [address] [facility] [email or web address] [place] [address] Care Team Providers Care Sr. Director Product Management Name Role Phone Chencho Dillard MD Primary Care Provider [phone] Chencho Dillard MD Unavailable [phone] Encounter Details Date Type Department Care Team (Late st Contact Info) Description 07/28/2023 Abstract [facility] [address] [facility] 110 [place] [phone] Chencho Dillard MD [address] [facility] 110 [place] [address] Social History Tobacco Use Types Packs/Day Years [...] often do you attend chur ch or anabaptist services? More than 4 times per year 06/24/2023 Do you belong to any clubs o r organizations such as bahai groups, unions, fraternal or athletic groups, or [...] care, and heating? Not very hard 06/24/2023 [facility] Occupat ional Health - Occupational [...] place to sleep or slept in a assisted (including now)? No 06/24/2023 Comments Unknown Sex [...] on filedocumented in this encounter Care Teams Sr. Director Product Management Relationship Specialty Start Date End Date Chencho Dillard MD [address] [place] [address] [place] [address] PCP - General Internal Medicine 12/28/22 Chencho Dillard MD [address] [place] [address] [place] [address] PCP - Medical [place] [employer] 08/22/23 08/21/99 documented as of this encounter
--- OUTSIDE RECORDS SUMMARY | 2025-04-17 09:48 | XMS_ITS | Encounter Summary ---
Author Organization [facility] Address [address] [facility] [address] Care Team Providers Care Purse Seiner Name Role Phone Chencho Dillard MD Primary Care Provider [phone] Chencho Dillard MD Unavailable [phone] Encounter Details Date Type Department Care Team (Late st Contact Info) Description 09/12/2024 Clinisync Result Encounter N[facility]S External Department Unsolicited Chencho Dillard MD [address] [facility] 110 [place] [address] Social History Tobacco Use Types Packs/Day Years [...] How often do you attend chur or denominational services? More than 4 times per year 06/24/2023 Do you belong to any clubs o r organizations such as episcopal groups, unions, fraternal or athletic groups, or [...] care, and heating? Not very hard 06/24/2023 [facility] of Occupat ional Health [...] place to sleep or slept in a detention (including now)? No 06/24/2023 Comments Unknown Sex [...] EST Narrative 09/12/2024 1:23 [place] [address] Mammography Report Signed Patient: SULEMAN NICOLAS MR#: [id number] : 1960 Acct:[id number] Age/Sex: 63 / F ADM Date: 09/10/24 Loc: MAMMO Attending Dr: CHENCHO DILLARD Ordering Physician: CHENCHO DILLARD Results: Date of Service: 09/10/24 Follow Up: Procedure(s): MM tomosynthesis screening BI Accession Number(s): [id number] cc: CHENCHO DILLARD Patient Name: SULEMAN NICOLAS MR#: [id number] : 1960 Exam Date: 09/10/2024 Ordering Doctor: [...] breast cancer at age 76. LOCATION: [facility] BREAST COMPOSITION: There are scattered areas of [...] Signed By: 09/12/24 1323 DD/ 1322 TD/TT: Geographic Information Systems Analyst: Procedure Note Radiology, Radiologist, MD - 09/12/2024 [place] [address] Mammography Report Signed Patient: SULEMAN NICOLAS LMR#: [id number] : 1960cct:[id number] Age/Sex: 63 / FADM Date: 09/10/24 Loc: MAMMO Attending Dr: CHENCHO DILLARD Ordering Physician: CHENCHO DILLARDResults: Date of Service: 09/10/24Follow Up: Procedure(s): MM tomosynthesis screening BI Accession Number(s): [id number] cc: CHENCHO DILLARD Patient Name: SULEMAN NICOLAS MR#: [id number] : 1960 Exam Date: 09/10/2024 Ordering Doctor: [...] breast cancer at age 76. LOCATION: [facility] BREAST COMPOSITION: There are scattered areas of [...] M.D. Signed By:09/12/24 1323 DD/ 1322 TD/TT: Geographic Information Systems Analyst: Chencho Dillard MD [facility] Final Result documented in this encounter Visit Diagnoses Not on filedocumented in this encounter Care Teams Purse Seiner Relationship Specialty Start Date End Date Chencho Dillard MD [address] [facility] 110 [place] [address] PCP - General Internal Medicine 12/28/22 Chencho Dillard MD [address] [facility] 110 [place] [address] PCP - Medical [place] [employer] 08/22/23 08/21/99 documented as of this encounter
--- OUTSIDE RECORDS SUMMARY | 2025-04-17 09:48 | XMS_ITS | Encounter Summary ---
Author Organization [facility] Address [address] [facility] [facility] [address] [place] [address] Care Team Providers Care Academic Support Specialist Name Role Phone Chencho Dillard MD Primary Care Provider [phone] Chencho Dillard MD Unavailable [phone] Encounter Details Date Type Department Care Team (Late st Contact Info) Description 12/13/2023 Abstract [facility] [place] [facility] [address] [facility] 110 [place] [phone] Chencho Dillard MD [address] [facility] 110 [place] [address] Social History Tobacco Use Types Packs/Day Years [...] often do you attend chur ch or orthodox services? More than 4 times per year 06/24/2023 Do you belong to any clubs o r organizations such as judaism groups, unions, fraternal or athletic groups, or [...] care, and heating? Not very hard 06/24/2023 [facility] of Occupat ional Health - Occupational Stress [...] place to sleep or slept in a skilled nursing (including now)? No 06/24/2023 Comments Unknown Sex and Gender Information Value Date Recorded Sex Assigned at Not on file Legal Sex Female 7:11 PM EDT Gender Identity Not on file Sexual Orientation Not on file documented as of this encounter Plan of Treatment Not on file documented as of this encounter Visit Diagnoses Not on filedocumented in this encounter Care Teams Academic Support Specialist Relationship Specialty Start Date End Date Chencho Dillard MD [address] [facility] 110 [place] [address] PCP - General Internal Medicine 12/28/22 Chencho Dillard MD [address] [facility] 110 [place] [address] PCP - Medical [place] [employer] 08/22/23 08/21/99 documented as of this encounter
--- OUTSIDE RECORDS SUMMARY | 2025-04-17 09:48 | XMS_ITS | Encounter Summary ---
Author Organization [facility] Address [address] [place] [address] [place] [address] Care Team Providers Care Folder Inspector Name Role Phone Chencho Dillard MD Primary Care Provider [phone] Chencho Dillard MD Unavailable Encounter Details Date Type Department Care Team (Late st Contact Info) Description 08/09/2024 Abstract [facility] [place] [facility] [address] [facility] 110 [place] [phone] Chencho Dillard MD 112 [facility] 110 [place] [address] Social History Tobacco Use Types Packs/Day Years [...] often do you attend chur ch or mormon services? More than 4 times per year 06/24/2023 Do you belong to any clubs o r organizations such as holiness groups, unions, fraternal or athletic groups, or [...] care, and heating? Not very hard 06/24/2023 [facility] of Occupat ional Health - [...] place to sleep or slept in a correction (including now)? No 06/24/2023 Comments Unknown Sex and Gender Information Value Date Recorded Sex Assigned at Not on file Legal Sex Female 7:11 PM EDT Gender Identity Not on file Sexual Orientation Not on file documented as of this encounter Plan of Treatment Not on file documented as of this encounter Visit Diagnoses Not on filedocumented in this encounter Care Teams Folder Inspector Relationship Specialty Start Date End Date Chencho Dillard MD [address] [facility] 110 [place] [address] PCP - General Internal Medicine 12/28/22 Chencho Dillard MD [address] [facility] 110 [place] [address] PCP - Medical [place] [employer] 08/22/23 08/21/99 documented as of this encounter
--- OUTSIDE RECORDS SUMMARY | 2025-04-17 09:48 | XMS_ITS | Encounter Summary ---
Author Organization [facility] Address [address] [facility] [address] [place] [address] Care Team Providers Care Air Conditioning Engineer Name Role Phone Chencho Dillard MD Primary Care Provider Chencho Dillard MD Unavailable [phone] Encounter Details Date Type Department Care Team (Late st Contact Info) Description 03/14/2025 Abstract [facility] [place] [facility] [address] [facility] 110 [place] [phone] Chencho Dillard MD 112 [facility] 110 [place] [address] Social History Tobacco Use Types Packs/Day Years [...] How often do you attend chur or spiritism services? More than 4 times per year 12/19/2024 Do you belong to any clubs o r organizations such as rastafarian groups, unions, fraternal or athletic groups, or [...] Recorded Patient Health Questionnaire-2 Score 0 12/20/2024 [facility] of Occupat ional Health - [...] place to sleep or slept in a nursing home (including now)? No 06/24/2023 Housing Stability Vital Sign Answer Epifanio e Recorded In the last 12 months, was t here a time when you were not able to pay the mortgage or rent on time? Patient declined 12/20/19 25 Number of Times Moved in the Last Year Not on fi le 12/19/2024 At any time in the past 12 m [facility], were you homeless or living in a nursing home (including now)? Patient declined 12/19/2024 Comments Unknown Sex and Gender Information Value Date Recorded Sex Assigned at Not on file Legal Sex Female 7:11 PM EDT Gender Identity Not on file Sexual Orientation Not on file documented as of this encounter Plan of Treatment Not on file documented as of this encounter Visit Diagnoses Not on filedocumented in this encounter Care Teams Air Conditioning Engineer Relationship Specialty Start Date End Date Chencho Dillard MD 112 [facility] 110 [place] [address] PCP - General Internal Medicine 12/28/22 Chencho Dillard MD [address] [facility] 110 [place] [address] PCP - Medical [place] [employer] 08/22/23 08/21/99 documented as of this encounter
--- OUTSIDE RECORDS SUMMARY | 2025-04-17 09:48 | XMS_ITS | Clinical Summary ---
Author Organization [employer] Address [id number] [address] [place] [address] Care Team Providers Care Hair Baler Name Role Phone Chencho Dillard MD Primary Care Provider [phone] Allergies No known active allergies Medications No [...] 04/22/2025 Medical Devices Not on file Insurance [employer] [facility] Care Teams Hair Baler Relationship Specialty Start Date End Date Chencho Dillard MD [facility] [address] [place] [phone] PCP - General Internal Medicine 11/18/17
--- OUTSIDE RECORDS SUMMARY | 2025-04-17 09:49 | XMS_ITS | Encounter Summary ---
Author Organization [facility] Address [address] [facility] [place] [address] Care Team Providers Care Automatic Operator Name Role Phone Chencho Dillard MD Primary Care Provider [phone] Chencho Dillard MD Unavailable [phone] Encounter Details Date Type Department Care Team (Late st Contact Info) Description 02/20/2025 Abstract [facility] [place] [facility] [address] [facility] 110 [place] [phone] Chencho Dillard MD [address] [facility] 110 [place] [address] Social History Tobacco Use Types Packs/Day Years [...] How often do you attend chur or gnosticism services? More than 4 times per year 12/19/2024 Do you belong to any clubs o r organizations such as orthodoxy groups, unions, fraternal or athletic groups, or [...] Recorded Patient Health Questionnaire-2 Score 0 12/20/2024 [facility] of Occupat ional Health - Occupational [...] in a alf (including now)? No 06/24/2023 Housing Stability Vital Sign Answer Epifanio e Recorded In the last 12 months, was t here a time when you were not able to pay the mortgage or rent on time? Patient declined 12/20/19 25 Number of Times Moved in the Last Year Not on fi le 12/19/2024 At any time in the past 12 m [facility], were you homeless or living in a alf (including now)? Patient declined 12/19/2024 Comments Unknown Sex and Gender Information Value Date Recorded Sex Assigned at Not on file Legal Sex Female 7:11 PM EDT Gender Identity Not on file Sexual Orientation Not on file documented as of this encounter Plan of Treatment Not on file documented as of this encounter Visit Diagnoses Not on filedocumented in this encounter Care Teams Automatic Operator Relationship Specialty Start Date End Date Chencho Dillard MD [address] [facility] 110 [place] [address] PCP - General Internal Medicine 12/28/22 Chencho Dillard MD [address] [facility] 110 [place] [address] PCP - Medical [place] [employer] 08/22/23 08/21/99 documented as of this encounter
--- OUTSIDE RECORDS SUMMARY | 2025-04-17 09:49 | XMS_ITS | Clinical Summary ---
Author Organization [facility] Address [address] [place] [address] Care Team Providers Care Automatic Buffing Wheel Former Name Role Phone Chencho Dillard MD Primary Care Provider [phone] Chencho Dillard MD Unavailable [phone] Allergies Active Allergy Reactions Criticality Noted Date [...] Encounters Date Type Department Care Team Description 03/14/2025 Abstract [facility] [address] [place] 110 [place] [phone] Chencho Dillard MD 02/20/2025 Abstract [facility] [address] [facility] 110 [place] [phone] Chencho Dillard MD 01/22/2025 Abstract [facility] [address] [facility] [place] [phone] Chencho Dillard MD from Last 3 Months Family History Medical [...] How often do you attend chur or mormon services? More than 4 times per year 12/19/2024 Do you belong to any clubs o r organizations such as latter-day groups, unions, fraternal or athletic groups, or [...] Recorded Patient Health Questionnaire-2 Score 0 12/20/2024 [facility] Occupat ional [facility] - Occupational Stress Questionnaire Answer Date Recorded [...] place to sleep or slept in a care home (including now)? No 06/24/2023 Housing Stability Vital Sign Answer Epifanio e Recorded In the last 12 months, was t here a time when you were not able to pay the mortgage or rent on time? Patient declined 12/20/19 Number of Times Moved in the Last Year Not on fi le 12/19/2024 At any time in the past 12 m [facility], were you homeless or living in a care home (including now)? Patient declined 12/19/2024 Comments [...] Screening 06/08/2025 024, 09/08/2023 Mammogram 09/12/2025 09/12/2024, 10/21, 11/18/2017, Additional history exists Diabetes: Retinopathy Screening [...] STL-IMP Negative Negative 12/24/2024 6:43 AM EDT [employer] (CLIA #:[id number]) Comment: The Cologuard (TM) test was performed [...] screened with both Cologuard and colonoscopy. (Ramirez Cartagena, N Engl J Med 2014;370(14):1286- 1297) The normal value (reference range) for this assay is negative. COLOGUARD RE-SCREENING RECOMMENDATION: Periodic colorectal cancer screening is an important part of preventive healthcare for asymptomatic individuals at average risk for colorectal cancer. Following a negative Cologuard result, the [place] [employer] and U.S. Multi-Society Task Force screening guidelines recommend a Cologuard re-screening interval of 3 years. References: [place] [employer] Guideline for Colorectal Cancer Screening: https://www.cancer.org/cancer/lnrzm-rcluro-qrlath/xeghtqgeh-cvdgdliwd-sfgkdvn/ac s-rec ommendations.html.; Rich DK, Aki CHARLES, Grisel WinnK, Colorectal Cancer Screening: Recommendations for Physicians and Patients from the U.S. Multi-Society Task Force on Colorectal Cancer Screening , Am J Gastroenterology 2017; 112:4827-4203. TEST DESCRIPTION: Composite algorithmic analysis of stool [...] screened with both Cologuard and colonoscopy. (Ramirez Cartagena, N Engl J Med 2014;370(14):2816-3049.) Cologuard may produce a false negative or false positive result (no colorectal cancer or precancerous polyp present at colonoscopy follow up). A negative Cologuard test result does not guarantee the absence of CRC or advanced adenoma (pre-cancer). The current Cologuard screening interval is every 3 years. ([place] [employer] and U.S. Multi-Society Task Force). Cologuard performance data in a 10,000 patient pivotal study using colonoscopy as the reference method can be accessed at the following location: www.[employer].com/results. Additional description of the Cologuard test process, warnings and precautions can be found at www.cologuard.com. Stool specimen (specimen) 12/18/2024 9:00 AM EDT 12/19/2024 1:04 PM EDT us Chencho Dillard MD LAB MOLECULAR DIAGNOSTICS [place] Final Result .[employer] (CLIA #:[id number]) [address] [address] [phone] [employer] (CLIA #:[id number]) [address] [place] [address] * POCT Glycated hemoglobin, total (11/28/2024 11:18 AM EDT) Hemoglobin A1C 5.8 Blood 11/28/2024 11:1 8 AM EDT us Chencho Dillard MD POINT OF CARE TEST ENTER/EDIT ORDERABLES Final Result * MM TOMOSYNTHESIS SCREENING BI (09/12/2024 1:22 PM EST) Anatomical Region Laterality Modality Other 09/12/2024 1:22 PM EST Narrative 09/12/2024 1:23 PM EST [address] [address] Mammography Report Signed Patient: SULEMAN NICOLAS MR#: [id number] : 1960 Acct:[id number] Age/Sex: 63 / F ADM Date: 09/10/24 Loc: MAMMO Attending Dr: CHENCHO DILLARD Ordering Physician: CHENCHO DILLARD Results: Date of Service: 09/10/24 Follow Up: Procedure(s): MM tomosynthesis screening BI Accession Number(s): [id number] cc: VIBHANEVAEHCHENCHO Patient Name: SULEMAN NICOLAS MR#: [id number] : 1960 Exam Date: 09/10/2024 Ordering Doctor: [...] at age 76. LOCATION: [facility] BREAST COMPOSITION: There are scattered [...] Signed By: 09/12/24 1323 DD/ 1322 TD/TT: Computer Artist: Procedure Note Radiology, Radiologist, MD - 09/12/2024 [place] [address] Mammography Report Signed Patient: SULEMAN NICOLAS LMR#: [id number] : 1960cct:[id number] Age/Sex: 63 / FADM Date: 09/10/24 Loc: MAMMO Attending Dr: CHENCHO DILLARD Ordering Physician: CHENCHO DILLARDResults: Date of Service: 09/10/24Follow Up: Procedure(s): MM tomosynthesis screening BI Accession Number(s): [id number] cc: DILLARDNEVAEHCHENCHO Patient Name: SULEMAN NICOLAS MR#: [id number] : 1960 Exam Date: 09/10/2024 Ordering Doctor: [...] at age 76. LOCATION: [facility] BREAST COMPOSITION: There are scattered [...] M.D. Signed By:09/12/24 1323 DD/ 1322 TD/TT: Computer Artist: us Chencho Dillard MD [facility] Final [...] Performing Organization Information Site ID: QPT Name: [facility] Address: [address] [place] [address], [address] [place] [phone] Director: Sebastian Urbano MD Chencho Dillard MD LAB URINE ORDERABLES Final Res ult Performing Organization Address City/State/[facility] Co de Phone Number QUEST * Diabetic Retinopathy Screening - OU - Both Eyes (12/09/2023) RESULTS NDR Anatomical Region Laterality Modality Head Other 12/09/2023 Chencho Dillard MD OPHTH PHOTOGRAPHY Final Result * Colonoscopy (02/04/2014 12:00 PM EDT) Anatomical Region Laterality Modality Endoscopy 02/04/2014 12:0 0 PM EDT Narrative 02/04/2014 12:00 PM EDT PERFORMED AT [facility] LOCATION:[id number] IBS,divericulosis,int,hemorrhoid Procedure Note CONVERSION, GENERIC - 01/06/2023 PERFORMED AT [facility] LOCATION:[id number] IBS,divericulosis,int,hemorrhoid us Generic Geovanna CORMIER ENDOSCOPY PROCEDURE ORDERA BLES Final Result from Last 3 Months or Most Recently Relevant to Health Maintenance Insurance [employer] Care Teams Automatic Buffing Wheel Former Relationship Specialty Start Date End Date Chencho Dillard MD [address] [facility] 110 [place] [address] PCP - General Internal Medicine 12/28/22 Chencho Dillard MD [address] [facility] 110 [place] [address] PCP - Medical [place] [employer] 08/22/23 08/21/99
--- OUTSIDE RECORDS SUMMARY | 2025-04-17 09:49 | XMS_ITS | Encounter Summary ---
Author Organization [facility] Address [address] [place] [address] Care Team Providers Care Coil Connector Name Role Phone Chencho Dillard MD Primary Care Provider [phone] Chencho Dillard MD Unavailable [phone] Encounter Details Date Type Department Care Team (Late st Contact Info) Description 08/19/2023 [facility] [address] [place] [address] [place] [phone] A, Unknown Practice [address] [id number] Social History Tobacco Use Types Packs/Day Years [...] often do you attend chur ch or pentecostal services? More than 4 times per year 06/24/2023 Do you belong to any clubs o r organizations such as yarsanism groups, unions, fraternal or athletic groups, or [...] care, and heating? Not very hard 06/24/2023 [facility] of Occupat ional Health - Occupational Stress [...] Laterality Modality Lower Extremities, Knee Left [facility] Practice A IMG XR PROCEDURES Final Resul t documented in this encounter Visit Diagnoses Not on filedocumented in this encounter Care Teams Coil Connector Relationship Specialty Start Date End Date Chencho Dillard MD [address] [facility] 110 [place] [address] PCP - General Internal Medicine 12/28/22 Chencho Dillard MD [address] [place] [address] [place] [address] PCP - Medical [place] [employer] 08/22/23 08/21/99 documented as of this encounter
--- OUTSIDE RECORDS SUMMARY | 2025-04-17 09:49 | XMS_ITS | Encounter Summary ---
Author Organization [facility] Address [address] [place] [address] [place] [address] Care Team Providers Care Submarine Element Coordinator Name Role Phone Chencho Dillard MD Primary Care Provider [phone] Chencho Dillard MD Unavailable [phone] Encounter Details Date Type Department Care Team (Late st Contact Info) Description 08/19/2023 Abstract [facility] [address] [facility] 110 [place] [phone] Chencho Dillard MD [address] [facility] 110 [place] [address] Social History Tobacco Use Types Packs/Day Years [...] often do you attend chur ch or rastafarian services? More than 4 times per year 06/24/2023 Do you belong to any clubs o r organizations such as taoism groups, unions, fraternal or athletic groups, or [...] care, and heating? Not very hard 06/24/2023 [facility] of Occupat ional Health - Occupational [...] on filedocumented in this encounter Care Teams Submarine Element Coordinator Relationship Specialty Start Date End Date Chencho Dillard MD [address] [place] [address] [place] [address] PCP - General Internal Medicine 12/28/22 Chencho Dillard MD [address] [place] [address] [place] [address] PCP - Medical [place] [employer] 08/22/23 08/21/99 documented as of this encounter
--- OUTSIDE RECORDS SUMMARY | 2025-04-17 10:00 | XMS_ITS | CCD ---
Author Organization [facility] Care Team Providers Care Burrer Marker Axle Name Role Phone REMBERTO, DR VICTOR HUGO Kiran Attending Unavailable HEMDIOGENES, DR VICTOR HUGO Kiran Admitting Unavailable ZIEBZEHRA, DR RIGO Davidson Consulting Unavailable REMBERTO, DR VICTOR HUGO Kiran Consulting Unavailable Chencho Dillard MD Primary Care Provider [phone] Chencho Dillard MD Unavailable CHENCHO DILLARD Attending CHENCHO Phillips Attending Unavailable CHENCHO DILLARD Attending Unavailable CHENCHO DILLARD Attending Chencho Phillips II Primary Care Provider Shyam Montes MD Attending Provider [phone] Shyam Montes Attending Unavailable Shyam Montes Admitting Unavailable Chencho Dillard Primary Care Unavailable Allergies Allergy Classification Reported Allergen(s) Allergy Type Date of Onset Reaction(s) Facility (1 source) Codeine Drug Allergy 4 [facility] (9 sources) Codeine Drug Allergy 3 Nausea Only [facility] (4 sources) Sulfamethoxazole Allergy to substance 3 Rash [facility] Medications Current Medications Medication Drug Class(es) Dates Sig (Normalized) Sig (Original) 24 hr metoprolol succinate 25 mg extended release oral tablet (10 sources) beta-Adrenergic Vilma Start: 08-09-2024 take 1 tablet by mouth every twenty-four hours in the morning metoprolol succinate XL (Toprol-XL) 25 MG 24 hr tablet Indications: Primary hypertension (CMS/HCC) TAKE 1 TABLET BY MOUTH IN THE MORNING and ONE TABLET BY MOUTH BEFORE bedtime 100 tablet 3 08/28/2024 Active Start: 07-27-2023 take 1 tablet by maile th every twenty-four hours in the morning metoprolol succinate XL (Toprol-XL) 25 MG 24 hr tablet Indications: Primary hypertension (CMS/HCC) Take 1 tablet (25 mg) by mouth in the morning and 1 tablet (25 mg) before bedtime. 100 tablet 3 07/27/2023 Active predniSONE 20 mg oral tablet (2 sources) Start: 12-20-2024 End: 12-25-2024 take 1 tablet by mouth once daily predniSONE (Deltasone) 20 MG tablet Indications: Pain of both shoulder joints , Pain of shoulder girdle Take 1 tablet (20 mg) by mouth Daily for 5 days 5 tablet 12/20/2024 12/25/2024 Active rosuvastatin calcium 5 mg oral tablet (10 sources) HMG-CoA Reductase Inhibitor Start: 01-13-2024 End: 01-12-2025 Problems Active Problems Problem Classification Problem Date Documented Date Episodic/Chronic Cataract (9 sources) Nuclear senile cataract; Translations: [Age-related nuclear cataract, unspecified eye] Onset: 06-23-2023 06-23-2023 Chronic Diabetes mellitus without complication (2 sources) Prediabetes; Translations: [Prediabetes] 11-28-2024 Episodic Disorders of lipid metabolism (11 sources) Pure hypercholesterolemia; Translations: [Pure hypercholesterolemia, unspecified] Onset: 09-08-2023 09-08-2023 Chronic Essential hypertension (11 sources) Essential hypertension; Translations: [Essential (primary) hypertension] Onset: 06-23-2023 06-23-2023 Chronic Glaucoma (9 sources) Ocular hypertension; Translations: [Ocular hypertension, unspecified eye] Onset: 06-23-2023 06-23-2023 Chronic Osteoarthritis (9 sources) Osteoarthritis of left knee joint; Translations: [Unilateral primary osteoarthritis, left knee] Onset: 09-08-2023 09-08-2023 Chronic Other non-traumatic joint disorders (6 sources) Bilateral shoulder joint pain; Translations: [Pain in right shoulder] 11-28-2024 Episodic Other non-traumatic joint disorders (2 sources) Pain in unspecified shoulder; Translations: [Pain in joint, shoulder region] 12-20-2024 Episodic Other screening for suspected conditions (not mental disorders or infectious disease) (6 sources) Encounter for screening mammogram for malignant neoplasm of breast; Translations: [Patient encounter status] Onset: 11-17-2021 Episodic Other upper respiratory infections (1 source) Viral upper respiratory tract infection; Translations: [Acute upper respiratory infection, unspecified] 08-09-2024 Episodic Residual codes; unclassified (1 source) Family history of malignant neoplasm of breast; Translations: [FAMILY HX MALIG NEOPLASM OF BREAST] Onset: 11-19-2021 Episodic Transient cerebral ischemia (2 sources) Transient cerebral ischemia; Translations: [Transient cerebral ischemic attack, unspecified] 06-07-2024 Chronic Past or Other Problems Problem Classification Problem Date Documented Date Episodic/Chronic Cardiac dysrhythmias (9 sources) Palpitations; Translations: [Palpitations] Onset: 06-23-2023 06-23-2023 Episodic Diabetes mellitus without complication (11 sources) Type 2 diabetes mellitus without complication; Translations: [Type 2 diabetes mellitus without complications] Onset: 07-27-2023 Resolved: 11-28-2024 07-27-2023 Chronic Inflammation; infection of eye (except that caused by tuberculosis or sexually transmitteddisease) (9 sources) Chronic dacryocystitis; Translations: [Chronic dacryocystitis of unspecified lacrimal passage] Onset: 06-23-2023 06-23-2023 Episodic Unclassified (2 sources) Pain of shoulder girdle 12-20-2024 Results Test Name Value Interpretation Reference Range Facility MELODIE Antinuclear Antibodieson 03-13-2025 Antinuclear Abs, IFA Negative Normal . [facility] Comment on above: Result Comment: Nega tive <1:80 Borderline 1:80 Positive >1:80 ICAP nomenclature: AC-0 For more information about Hep-2 cell patterns use ANApatterns.org, the official website for the International Consensus on Antinuclear Antibody (MELODIE) Patterns (ICAP). Performed at: - [facility] [id number] Battery Char[employer] Conveyor Line: Rolando Bess PhD, Phone: [phone] Performed By: #### S CL70AB, ANDREA,URINE, JO1, TPO, ADNA, HISAB, UPE RAND, ANTIR, ALDOLASE, THYGLOB AB, SPE, DOMINGUEZ, SSB, SSA, CHROMATIN, CCP, ANDREA SERUM, CENTROME, MELODIE, RA #### [facility] , #### T4F, ESR, ADDONUAPLUS, CMP, CBC, TSH3, CK, CRP #### [address] Alanine aminotransferase [En zymatic activity/volume] in Serum or PlasmaOrdered By: Shyam Montes on 03-13-2025 ALT [Catalytic activity/Vol] 18 U/L Normal 7-52 [facility] Comment on above: Performed By: #### S CL70AB, ANDREA,URINE, JO1, TPO, ADNA, HISAB, UPE RAND, ANTIR, ALDOLASE, THYGLOB AB, SPE, DOMINGUEZ, SSB, SSA, CHROMATIN, CCP, ANDREA SERUM, CENTROME, MELODIE, RA #### [facility] , #### T4F, ESR, ADDONUAPLUS, CMP, CBC, TSH3, CK, CRP #### [address] Albumin [Mass/volume] in Ser um or Plasma by Bromocresol green (BCG) dye binding methoOrdered By: Shyam Montes on 03-13-2025 Albumin BCG dye [Mass/Vol] 4.8 g/dL 3.5-5.7 [facility] Aldolaseon 03-13-2025 Aldolase 4.5 U/L Normal 3.3-10.3 [facility] Comment on above: Result Comment: Perf ormed at: - [facility] [address] [id number] [employer] Line: Rolando Bess PhD, Phone: [phone] PERFORMED BY: [place] [address] PATHOLOGIST FORDER OPERATOR DIAN MENDIETA M.D. Performed By: #### S CL70AB, ANDREA,URINE, JO1, TPO, ADNA, HISAB, UPE RAND, ANTIR, ALDOLASE, THYGLOB AB, SPE, DOMINGUEZ, SSB, SSA, CHROMATIN, CCP, ANDREA SERUM, CENTROME, MELODIE, RA #### [facility] , #### T4F, ESR, ADDONUAPLUS, CMP, CBC, TSH3, CK, CRP #### [address] Alkaline phosphatase [Enzyma tic activity/volume] in Serum or PlasmaOrdered By: Shyam Montes on 03-13-2025 ALP [Catalytic activity/Vol] 97 U/L Normal 34-104 [facility] Comment on above: Performed By: #### S CL70AB, ANDREA,URINE, JO1, TPO, ADNA, HISAB, UPE RAND, ANTIR, ALDOLASE, THYGLOB AB, SPE, DOMINGUEZ, SSB, SSA, CHROMATIN, CCP, ANDREA SERUM, CENTROME, MELODIE, RA #### [facility] , #### T4F, ESR, ADDONUAPLUS, CMP, CBC, TSH3, CK, CRP #### [facility] [address] Anti-Centromere B Antibodies on 03-13-2025 Anti-Centromere B Antibodies <0.2 Normal 0.0-0.9 [facility] Comment on above: Result Comment: Perf ormed at: - [facility] [address] [id number] [employer] Line: Rolando Bess PhD, Phone: [phone] Performed By: #### S CL70AB, ANDREA,URINE, JO1, TPO, ADNA, HISAB, UPE RAND, ANTIR, ALDOLASE, THYGLOB AB, SPE, DOMINGUEZ, SSB, SSA, CHROMATIN, CCP, ANDREA SERUM, CENTROME, MELODIE, RA #### [facility] , #### T4F, ESR, ADDONUAPLUS, CMP, CBC, TSH3, CK, CRP #### [facility] [address] Anti-RNPon 03-13-2025 Anti-PRECISION MACHINIST <0.2 Normal 0.0-0.9 [facility] Comment on above: Performed By: #### S CL70AB, ANDREA,URINE, JO1, TPO, ADNA, HISAB, UPE RAND, ANTIR, ALDOLASE, THYGLOB AB, SPE, DOMINGUEZ, SSB, SSA, CHROMATIN, CCP, ANDREA SERUM, CENTROME, MELODIE, RA #### [facility] , #### T4F, ESR, ADDONUAPLUS, CMP, CBC, TSH3, CK, CRP #### [facility] [address] [place] [address] [place] Anti-Dominguez Antibodieson 02-20 Anti-Dominguez Antibodies <0.2 Normal 0.0-0.9 [facility] Comment on above: Performed By: #### S CL70AB, ANDREA,URINE, JO1, TPO, ADNA, HISAB, UPE RAND, ANTIR, ALDOLASE, THYGLOB AB, SPE, DOMINGUEZ, SSB, SSA, CHROMATIN, CCP, ANDREA SERUM, CENTROME, MELODIE, RA #### [facility] , #### T4F, ESR, ADDONUAPLUS, CMP, CBC, TSH3, CK, CRP #### [address] Anti-dsDNA(DBL)Abon 03-13-20 Anti-dsDNA(DBL)Ab <1 Normal 0-9 [facility] Comment on above: Result Comment: Nega tive <5 Equivocal 5 - 9 Positive >9 Performed By: #### S CL70AB, ANDREA,URINE, JO1, TPO, ADNA, HISAB, UPE RAND, ANTIR, ALDOLASE, THYGLOB AB, SPE, DOMINGUEZ, SSB, SSA, CHROMATIN, CCP, ANDREA SERUM, CENTROME, MELODIE, RA #### [facility] , #### T4F, ESR, ADDONUAPLUS, CMP, CBC, TSH3, CK, CRP #### [place] [address] [place] Antithyroglobulin Abon 03-13 Antithyroglobulin Ab <1.0 Normal 0.0-0.9 [facility] Comment on above: Result Comment: Thyr oglobulin Antibody measured by [employer] [facility] Method[employer] It should be noted that the presence of thyroglobulin antibodies may not be pathogenic nor diagnostic, especially at very low levels. The assay robot technician has found that four percent of individuals without evidence of thyroid disease or autoimmunity will have positive TgAb levels up to 4 IU/mL. Performed at: [address], [place], [place] [id number] [employer] Line: Rolando Bess PhD, Phone: [phone] Performed By: #### S CL70AB, ANDREA,URINE, JO1, TPO, ADNA, HISAB, UPE RAND, ANTIR, ALDOLASE, THYGLOB AB, SPE, DOMINGUEZ, SSB, SSA, CHROMATIN, CCP, ANDREA SERUM, CENTROME, MELODIE, RA #### [facility] , #### T4F, ESR, ADDONUAPLUS, CMP, CBC, TSH3, CK, CRP #### [address] Appearance of UrineOrdered B y: Shyam Montes on 03-13-2025 Appearance (U) Clear Normal Clear [facility] Comment on above: Order Comment: Name Collection Type:: Clean-Voided Midstream Performed By: #### S CL70AB, ANDREA,URINE, JO1, TPO, ADNA, HISAB, UPE RAND, ANTIR, ALDOLASE, THYGLOB AB, SPE, DOMINGUEZ, SSB, SSA, CHROMATIN, CCP, ANDREA SERUM, CENTROME, MELODIE, RA #### [facility] , #### T4F, ESR, ADDONUAPLUS, CMP, CBC, TSH3, CK, CRP #### [address] Aspartate aminotransferase [ Enzymatic activity/volume] in Serum or PlasmaOrdered By: Shyam Castillorow on 03-13-2025 AST [Catalytic activity/Vol] 22 U/L Normal 13-39 [facility] Comment on above: Performed By: #### S CL70AB, ANDREA,URINE, JO1, TPO, ADNA, HISAB, UPE RAND, ANTIR, ALDOLASE, THYGLOB AB, SPE, DOMINGUEZ, SSB, SSA, CHROMATIN, CCP, ANDREA SERUM, CENTROME, MELODIE, RA #### [facility] , #### T4F, ESR, ADDONUAPLUS, CMP, CBC, TSH3, CK, CRP #### [facility] [address] [place] [address] Bacteria [Presence] in Urine by AutomatedOrdered By: Shyam Castillorow on 03-13-2025 Bacteria Auto Ql (U) None seen [HPF] None Seen [facility] Basophils [#/volume] in Bloo d by Automated countOrdered By: Shyam Castillorow on 03-13-2025 Basophils (Bld) [#/Vol] 0.1 10*3/uL Normal 0.0-0.2 [facility] Comment on above: Performed By: #### S CL70AB, ANDREA,URINE, JO1, TPO, ADNA, HISAB, UPE RAND, ANTIR, ALDOLASE, THYGLOB AB, SPE, DOMINGUEZ, SSB, SSA, CHROMATIN, CCP, ANDREA SERUM, CENTROME, MELODIE, RA #### [facility] , #### T4F, ESR, ADDONUAPLUS, CMP, CBC, TSH3, CK, CRP #### [facility] [address] [place] [address] [place] Basophils/100 leukocytes in Blood by Automated countOrdered By: Shyam Montes on 03-13-2025 Basophils/100 WBC (Bld) 0.6 % Normal . [facility] Comment on above: Performed By: #### S CL70AB, ANDREA,URINE, JO1, TPO, ADNA, HISAB, UPE RAND, ANTIR, ALDOLASE, THYGLOB AB, SPE, DOMINGUEZ, SSB, SSA, CHROMATIN, CCP, ANDREA SERUM, CENTROME, MELODIE, RA #### [facility] , #### T4F, ESR, ADDONUAPLUS, CMP, CBC, TSH3, CK, CRP #### [facility] [address] Bilirubin Test strip Ql (U)O rdered By: Shyam Montes on 03-13-2025 Bilirubin Ql (U) Negative Negative [facility] Bilirubin.total [Mass/volume ] in Serum or PlasmaOrdered By: Shyam Montes on 03-13-2025 Bilirubin [Mass/Vol] 0.3 mg/dL Normal 0.3-1.0 [facility] Comment on above: Performed By: #### S CL70AB, ANDREA,URINE, JO1, TPO, ADNA, HISAB, UPE RAND, ANTIR, ALDOLASE, THYGLOB AB, SPE, DOMINGUEZ, SSB, SSA, CHROMATIN, CCP, ANDREA SERUM, CENTROME, MELODIE, RA #### [facility] , #### T4F, ESR, ADDONUAPLUS, CMP, CBC, TSH3, CK, CRP #### [facility] [address] C reactive protein [Mass/vol ume] in Serum or PlasmaOrdered By: Shyam Montes on 03-13-2025 CRP [Mass/Vol] 0.7 mg/dL High 0.0-0.5 [facility] C-Reactive Proteinon 025 C-Reactive Protein 0.7 mg/dL High 0.0-0.5 [facility] Comment on above: Performed By: #### S CL70AB, ANDREA,URINE, JO1, TPO, ADNA, HISAB, UPE RAND, ANTIR, ALDOLASE, THYGLOB AB, SPE, DOMINGUEZ, SSB, SSA, CHROMATIN, CCP, ANDREA SERUM, CENTROME, MELODIE, RA #### [facility] , #### T4F, ESR, ADDONUAPLUS, CMP, CBC, TSH3, CK, CRP #### [address] Calcium [Mass/volume] in Ser um or PlasmaOrdered By: Shyam Montes on 03-13-2025 Calcium [Mass/Vol] 10.0 mg/dL Normal 8.6-10.3 [facility] Comment on above: Performed By: #### S CL70AB, ANDREA,URINE, JO1, TPO, ADNA, HISAB, UPE RAND, ANTIR, ALDOLASE, THYGLOB AB, SPE, DOMINGUEZ, SSB, SSA, CHROMATIN, CCP, ANDREA SERUM, CENTROME, MELODIE, RA #### [facility] , #### T4F, ESR, ADDONUAPLUS, CMP, CBC, TSH3, CK, CRP #### [facility] [address] Carbon dioxide, total [Moles /volume] in Serum or PlasmaOrdered By: Shyam Montes on 03-13-2025 CO2 [Moles/Vol] 32.5 mmol/L High 21.0-31.0 [facility] Comment on above: Performed By: #### S CL70AB, ANDREA,URINE, JO1, TPO, ADNA, HISAB, UPE RAND, ANTIR, ALDOLASE, THYGLOB AB, SPE, DOMINGUEZ, SSB, SSA, CHROMATIN, CCP, ANDREA SERUM, CENTROME, MELODIE, RA #### [facility] , #### T4F, ESR, ADDONUAPLUS, CMP, CBC, TSH3, CK, CRP #### [address] Chloride [Moles/volume] in S soni or PlasmaOrdered By: Shyam Montes on 03-13-2025 Chloride [Moles/Vol] 100 mmol/L Normal 98-107 [facility] Comment on above: Performed By: #### S CL70AB, ANDREA,URINE, JO1, TPO, ADNA, HISAB, UPE RAND, ANTIR, ALDOLASE, THYGLOB AB, SPE, DOMINGUEZ, SSB, SSA, CHROMATIN, CCP, ANDREA SERUM, CENTROME, MELODIE, RA #### [facility] , #### T4F, ESR, ADDONUAPLUS, CMP, CBC, TSH3, CK, CRP #### [address] Chromatin Antibodyon 025 Chromatin Antibody <0.2 Normal 0.0-0.9 [facility] Comment on above: Result Comment: PERF ORMED BY: [place] [address] PATHOLOGIST FORDER OPERATOR DIAN MENDIETA M.D. Performed By: #### S CL70AB, ANDREA,URINE, JO1, TPO, ADNA, HISAB, UPE RAND, ANTIR, ALDOLASE, THYGLOB AB, SPE, DOMINGUEZ, SSB, SSA, CHROMATIN, CCP, ANDREA SERUM, CENTROME, MELODIE, RA #### [facility] , #### T4F, ESR, ADDONUAPLUS, CMP, CBC, TSH3, CK, CRP #### [address] Color of Urine by AutoOrdere d By: Shyam Montes on 03-13-2025 Color (U) Colorless Normal Yellow [facility] Comment on above: Order Comment: Name Collection Type:: Clean-Voided Midstream Performed By: #### S CL70AB, ANDREA,URINE, JO1, TPO, ADNA, HISAB, UPE RAND, ANTIR, ALDOLASE, THYGLOB AB, SPE, DOMINGUEZ, SSB, SSA, CHROMATIN, CCP, ANDREA SERUM, CENTROME, MELODIE, RA #### [facility] , #### T4F, ESR, ADDONUAPLUS, CMP, CBC, TSH3, CK, CRP #### [address] Complete Blood Count Auto Di ffon 03-13-2025 Mean Corpuscular HGB Conc 33.7 g/dL Normal 32.0-35.0 [facility] Comment on above: Performed By: #### S CL70AB, ANDREA,URINE, JO1, TPO, ADNA, HISAB, UPE RAND, ANTIR, ALDOLASE, THYGLOB AB, SPE, DOMINGUEZ, SSB, SSA, CHROMATIN, CCP, ANDREA SERUM, CENTROME, MELODIE, RA #### [facility] , #### T4F, ESR, ADDONUAPLUS, CMP, CBC, TSH3, CK, CRP #### [address] NRBC% 0.1 /100{WBC} Normal 0-0.5 [facility] Comment on above: Performed By: #### S CL70AB, ANDREA,URINE, JO1, TPO, ADNA, HISAB, UPE RAND, ANTIR, ALDOLASE, THYGLOB AB, SPE, DOMINGUEZ, SSB, SSA, CHROMATIN, CCP, ANDREA SERUM, CENTROME, MELODIE, RA #### [facility] , #### T4F, ESR, ADDONUAPLUS, CMP, CBC, TSH3, CK, CRP #### [facility] [address] White Blood Count 8.3 [CFU]/mL Normal 3.8-11.[address] [facility] Comment on above: Performed By: #### S CL70AB, ANDREA,URINE, JO1, TPO, ADNA, HISAB, UPE RAND, ANTIR, ALDOLASE, THYGLOB AB, SPE, DOMINGUEZ, SSB, SSA, CHROMATIN, CCP, ANDREA SERUM, CENTROME, MELODIE, RA #### [facility] , #### T4F, ESR, ADDONUAPLUS, CMP, CBC, TSH3, CK, CRP #### [address] Comprehensive Metabolic Pane nohemi 03-13-2025 Albumin [Mass/Vol] 4.8 g/dL Normal 3.5-5.7 [facility] Comment on above: Performed By: #### S CL70AB, ANDREA,URINE, JO1, TPO, ADNA, HISAB, UPE RAND, ANTIR, ALDOLASE, THYGLOB AB, SPE, DOMINGUEZ, SSB, SSA, CHROMATIN, CCP, ANDREA SERUM, CENTROME, MELODIE, RA #### [facility] , #### T4F, ESR, ADDONUAPLUS, CMP, CBC, TSH3, CK, CRP #### [address] GFR/1.73 sq M.predicted MDRD (S/P/Bld) [Vol rate/Area] mL/min/{1.73_m2} Normal [facility] Comment on above: Performed By: #### S CL70AB, ANDREA,URINE, JO1, TPO, ADNA, HISAB, UPE RAND, ANTIR, ALDOLASE, THYGLOB AB, SPE, DOMINGUEZ, SSB, SSA, CHROMATIN, CCP, ANDREA SERUM, CENTROME, MELODIE, RA #### [facility] , #### T4F, ESR, ADDONUAPLUS, CMP, CBC, TSH3, CK, CRP #### [facility] [address] Creatine kinase [Enzymatic a ctivity/volume] in Serum or PlasmaOrdered By: Shyam Montes on 03-13-2025 CK [Catalytic activity/Vol] 84 U/L Normal 30-223 [facility] Comment on above: Result Comment: PERF ORMED BY: [place] [address] PATHOLOGIST FORDER OPERATOR DIAN MENDIETA M.D. Performed By: #### S CL70AB, ANDREA,URINE, JO1, TPO, ADNA, HISAB, UPE RAND, ANTIR, ALDOLASE, THYGLOB AB, SPE, DOMINGUEZ, SSB, SSA, CHROMATIN, CCP, ANDREA SERUM, CENTROME, MELODIE, RA #### [facility] , #### T4F, ESR, ADDONUAPLUS, CMP, CBC, TSH3, CK, CRP #### [facility] [address] [place] [address] Creatinine [Mass/volume] in Serum or PlasmaOrdered By: Shyam Montes on 03-13-2025 Creatinine [Mass/Vol] 0.57 mg/dL Low 0.60-1.20 [facility] Comment on above: Performed By: #### S CL70AB, ANDREA,URINE, JO1, TPO, ADNA, HISAB, UPE RAND, ANTIR, ALDOLASE, THYGLOB AB, SPE, DOMINGUEZ, SSB, SSA, CHROMATIN, CCP, ANDREA SERUM, CENTROME, MELODIE, RA #### [facility] , #### T4F, ESR, ADDONUAPLUS, CMP, CBC, TSH3, CK, CRP #### [facility] [address] [place] [address] Cyclic Citrulliated Pep Abon 03-13-2025 Cyclic Citrulliated Pep Ab 10 Normal 0-19 [facility] Comment on above: Result Comment: Nega tive <20 Weak positive 20 - 39 Moderate positive 40 - 59 Strong positive >59 Performed at: - [facility] [id number] Battery Charger Conveyor Line: Rolando Bess PhD, Phone: [phone] Performed By: #### S CL70AB, ANDREA,URINE, JO1, TPO, ADNA, HISAB, UPE RAND, ANTIR, ALDOLASE, THYGLOB AB, SPE, DOMINGUEZ, SSB, SSA, CHROMATIN, CCP, ANDREA SERUM, CENTROME, MELODIE, RA #### [facility] , #### T4F, ESR, ADDONUAPLUS, CMP, CBC, TSH3, CK, CRP #### [address] Dipstick and Microscopicon 0 03-13-2025 Bacteria,Urine None Seen Normal None Seen [facility] Comment on above: Order Comment: Name Collection Type:: Clean-Voided Midstream Performed By: #### S CL70AB, ANDREA,URINE, JO1, TPO, ADNA, HISAB, UPE RAND, ANTIR, ALDOLASE, THYGLOB AB, SPE, DOMINGUEZ, SSB, SSA, CHROMATIN, CCP, ANDREA SERUM, CENTROME, MELODIE, RA #### [facility] , #### T4F, ESR, ADDONUAPLUS, CMP, CBC, TSH3, CK, CRP #### [address] Bilirubin,Urine Negative Normal Negative [facility] Comment on above: Order Comment: Name Collection Type:: Clean-Voided Midstream Performed By: #### S CL70AB, ANDREA,URINE, JO1, TPO, ADNA, HISAB, UPE RAND, ANTIR, ALDOLASE, THYGLOB AB, SPE, DOMINGUEZ, SSB, SSA, CHROMATIN, CCP, ANDREA SERUM, CENTROME, MELODIE, RA #### [facility] , #### T4F, ESR, ADDONUAPLUS, CMP, CBC, TSH3, CK, CRP #### [address] [place] [address] [place] Glucose Ql (U) Normal Normal Normal [facility] Comment on above: Order Comment: Name Collection Type:: Clean-Voided Midstream Performed By: #### S CL70AB, ANDREA,URINE, JO1, TPO, ADNA, HISAB, UPE RAND, ANTIR, ALDOLASE, THYGLOB AB, SPE, DOMINGUEZ, SSB, SSA, CHROMATIN, CCP, ANDREA SERUM, CENTROME, MELODIE, RA #### [facility] , #### T4F, ESR, ADDONUAPLUS, CMP, CBC, TSH3, CK, CRP #### [address] Hyaline Casts,Urine None Normal 0-8 [facility] Comment on above: Order Comment: Name Collection Type:: Clean-Voided Midstream Result Comment: PERF ORMED BY: [place] [address] PATHOLOGIST FORDER OPERATOR DIAN MENDIETA M.D. Performed By: #### S CL70AB, ANDREA,URINE, JO1, TPO, ADNA, HISAB, UPE RAND, ANTIR, ALDOLASE, THYGLOB AB, SPE, DOMINGUEZ, SSB, SSA, CHROMATIN, CCP, ANDREA SERUM, CENTROME, MELODIE, RA #### [facility] , #### T4F, ESR, ADDONUAPLUS, CMP, CBC, TSH3, CK, CRP #### [address] Nitrite,Urine Negative Normal Negative [facility] Comment on above: Order Comment: Name Collection Type:: Clean-Voided Midstream Performed By: #### S CL70AB, ANDREA,URINE, JO1, TPO, ADNA, HISAB, UPE RAND, ANTIR, ALDOLASE, THYGLOB AB, SPE, DOMINGUEZ, SSB, SSA, CHROMATIN, CCP, ANDREA SERUM, CENTROME, MELODIE, RA #### [facility] , #### T4F, ESR, ADDONUAPLUS, CMP, CBC, TSH3, CK, CRP #### [facility] [address] Occult Blood,Urine Negative Normal Negative [facility] Comment on above: Order Comment: Name Collection Type:: Clean-Voided Midstream Performed By: #### S CL70AB, ANDREA,URINE, JO1, TPO, ADNA, HISAB, UPE RAND, ANTIR, ALDOLASE, THYGLOB AB, SPE, DOMINGUEZ, SSB, SSA, CHROMATIN, CCP, ANRDEA SERUM, CENTROME, MELODIE, RA #### [facility] , #### T4F, ESR, ADDONUAPLUS, CMP, CBC, TSH3, CK, CRP #### [address] Protein,Urine Negative Normal Negative [facility] Comment on above: Order Comment: Name Collection Type:: Clean-Voided Midstream Performed By: #### S [id number], ANDREA,URINE, JO1, TPO, ADNA, HISAB, UPE RAND, ANTIR, ALDOLASE, THYGLOB AB, SPE, DOMINGUEZ, SSB, SSA, CHROMATIN, CCP, ANDREA SERUM, CENTROME, MELODIE, RA #### [facility] , #### T4F, ESR, ADDONUAPLUS, CMP, CBC, TSH3, CK, CRP #### [address] RBC,Urine 1-2 Normal 0-4 [facility] Comment on above: Order Comment: Name Collection Type:: Clean-Voided Midstream Performed By: #### S [id number], ANDREA,URINE, JO1, TPO, ADNA, HISAB, UPE RAND, ANTIR, ALDOLASE, THYGLOB AB, SPE, DOMINGUEZ, SSB, SSA, CHROMATIN, CCP, ANDREA SERUM, CENTROME, MELODIE, RA #### [facility] , #### T4F, ESR, ADDONUAPLUS, CMP, CBC, TSH3, CK, CRP #### [address] Specificy [place],Urine 1.006 Normal 1.001-1.030 [facility] Comment on above: Order Comment: Name Collection Type:: Clean-Voided Midstream Performed By: #### S CL70AB, ANDREA,URINE, JO1, TPO, ADNA, HISAB, UPE RAND, ANTIR, ALDOLASE, THYGLOB AB, SPE, DOMINGUEZ, SSB, SSA, CHROMATIN, CCP, ANDREA SERUM, CENTROME, MELODIE, RA #### [facility] , #### T4F, ESR, ADDONUAPLUS, CMP, CBC, TSH3, CK, CRP #### [facility] [address] Squamous Epithelial Cell,Urine 1-2 Normal 0-2 [facility] Comment on above: Order Comment: Name Collection Type:: Clean-Voided Midstream Performed By: #### S CL70AB, ANDREA,URINE, JO1, TPO, ADNA, HISAB, UPE RAND, ANTIR, ALDOLASE, THYGLOB AB, SPE, DOMINGUEZ, SSB, SSA, CHROMATIN, CCP, ANDREA SERUM, CENTROME, MELODIE, RA #### [facility] , #### T4F, ESR, ADDONUAPLUS, CMP, CBC, TSH3, CK, CRP #### [facility] [address] Urobilinogen,Urine Normal Normal Normal [facility] Comment on above: Order Comment: Name Collection Type:: Clean-Voided Midstream Performed By: #### S CL70AB, ANDREA,URINE, JO1, TPO, ADNA, HISAB, UPE RAND, ANTIR, ALDOLASE, THYGLOB AB, SPE, DOMINGUEZ, SSB, SSA, CHROMATIN, CCP, ANDREA SERUM, CENTROME, MELODIE, RA #### [facility] , #### T4F, ESR, ADDONUAPLUS, CMP, CBC, TSH3, CK, CRP #### [facility] [address] [place] [address] WBC,Urine None Seen Normal 0-4 [facility] Comment on above: Order Comment: Name Collection Type:: Clean-Voided Midstream Performed By: #### S CL70AB, ANDREA,URINE, JO1, TPO, ADNA, HISAB, UPE RAND, ANTIR, ALDOLASE, THYGLOB AB, SPE, DOMINGUEZ, SSB, SSA, CHROMATIN, CCP, ANDREA SERUM, CENTROME, MELODIE, RA #### [facility] , #### T4F, ESR, ADDONUAPLUS, CMP, CBC, TSH3, CK, CRP #### [facility] [address] Eosinophils [#/volume] in Bl ood by Automated countOrdered By: Shyam Montes on 03-13-2025 Eosinophils (Bld) [#/Vol] 0.1 10*3/uL Normal 0.0-0.45 [facility] Comment on above: Performed By: #### S CL70AB, ANDREA,URINE, JO1, TPO, ADNA, HISAB, UPE RAND, ANTIR, ALDOLASE, THYGLOB AB, SPE, DOMINGUEZ, SSB, SSA, CHROMATIN, CCP, ANDREA SERUM, CENTROME, MELODIE, RA #### [facility] , #### T4F, ESR, ADDONUAPLUS, CMP, CBC, TSH3, CK, CRP #### [facility] [address] [place] [address] [place] Eosinophils/100 leukocytes i n Blood by Automated countOrdered By: Shyam Montes on 03-13-2025 Eosinophils/100 WBC (Bld) 1.2 % Normal . [facility] Comment on above: Performed By: #### S CL70AB, ANDREA,URINE, JO1, TPO, ADNA, HISAB, UPE RAND, ANTIR, ALDOLASE, THYGLOB AB, SPE, DOMINGUEZ, SSB, SSA, CHROMATIN, CCP, ANDREA SERUM, CENTROME, MELODIE, RA #### [facility] , #### T4F, ESR, ADDONUAPLUS, CMP, CBC, TSH3, CK, CRP #### [facility] [address] [place] [address] Epithelial cells.squamous [# /area] in Urine sediment by Automated countOrdered By: Shyam Montes on 03-13-2025 Epithelial cells.squamous Auto (Urine sed) [#/Area] 1-2 [HPF] 0-2 [facility] Erythrocyte Sedimentation Ra omar 03-13-2025 ESR (Bld) [Velocity] 21 mm/h Normal 0-29 [facility] Comment on above: Result Comment: PERF ORMED BY: [place] [address] PATHOLOGIST FORDER OPERATOR DIAN MENDIETA M.D. Performed By: #### S CL70AB, ANDREA,URINE, JO1, TPO, ADNA, HISAB, UPE RAND, ANTIR, ALDOLASE, THYGLOB AB, SPE, DOMINGUEZ, SSB, SSA, CHROMATIN, CCP, ANDREA SERUM, CENTROME, MELODIE, RA #### [facility] , #### T4F, ESR, ADDONUAPLUS, CMP, CBC, TSH3, CK, CRP #### [facility] [address] [place] [address] Erythrocyte distribution wid th [Ratio] by Automated countOrdered By: Shyam Montes on 03-13-2025 Erythrocyte distribution width (RBC) [Ratio] 13.5 % Normal 11.9-15.3 [facility] Comment on above: Performed By: #### S CL70AB, ANDREA,URINE, JO1, TPO, ADNA, HISAB, UPE RAND, ANTIR, ALDOLASE, THYGLOB AB, SPE, DOMINGUEZ, SSB, SSA, CHROMATIN, CCP, ANDREA SERUM, CENTROME, MELODIE, RA #### [facility] , #### T4F, ESR, ADDONUAPLUS, CMP, CBC, TSH3, CK, CRP #### [facility] [address] [place] [address] Erythrocyte sedimentation ra te by Photometric methodOrdered By: Shyam Montes on 03-13-2025 ESR Photometric method (Bld) [Velocity] 21 mm/hr 0-29 [facility] Erythrocytes [#/area] in Uri ne sediment by Automated countOrdered By: Shyam Montes on 03-13-2025 RBC Auto (Urine sed) [#/Area] 1-2 [HPF] 0-4 [facility] Erythrocytes [#/volume] in B lood by Automated countOrdered By: Shyam Montes on 03-13-2025 RBC (Bld) [#/Vol] 4.57 10*6/uL Normal 3.60-5.00 [facility] Comment on above: Performed By: #### S CL70AB, ANDREA,URINE, JO1, TPO, ADNA, HISAB, UPE RAND, ANTIR, ALDOLASE, THYGLOB AB, SPE, DOMINGUEZ, SSB, SSA, CHROMATIN, CCP, ANDREA SERUM, CENTROME, MELODIE, RA #### [facility] , #### T4F, ESR, ADDONUAPLUS, CMP, CBC, TSH3, CK, CRP #### [facility] [address] [place] [id number] [place] Glucose [Mass/volume] in Ser um or PlasmaOrdered By: Shyam Montes on 03-13-2025 Glucose [Mass/Vol] 93 mg/dL Normal 70-100 [facility] Comment on above: ADA recommended refe rence rangeRandom Glucose Reference Range is dependent on time and content of last meal. Glucose of more than 200 mg/dL in a nonstressed, ambulatory subject supports the diagnosis of Diabetes Mellitus. Result Comment: [place] om Glucose Reference Range is dependent on time and content of last meal. Glucose of more than 200 mg/dL in a nonstressed, ambulatory subject supports the diagnosis of Diabetes Mellitus. ADA recommended reference range Performed By: #### S CL70AB, ANDREA,URINE, JO1, TPO, ADNA, HISAB, UPE RAND, ANTIR, ALDOLASE, THYGLOB AB, SPE, DOMINGUEZ, SSB, SSA, CHROMATIN, CCP, ANDREA SERUM, CENTROME, MELODIE, RA #### [facility] , #### T4F, ESR, ADDONUAPLUS, CMP, CBC, TSH3, CK, CRP #### [facility] [address] [place] [address] [place] Glucose [Mass/volume] in Uri ne by Test stripOrdered By: Shyam Montes on 03-13-2025 Glucose Test strip (U) [Mass/Vol] Normal mg/dL Normal [facility] Hematocrit [Volume Fraction] of Blood by Automated countOrdered By: Shyam Montes on 03-13-2025 Hematocrit (Bld) [Volume fraction] 39.8 % Normal 34.0-46.4 [facility] Comment on above: Performed By: #### S CL70AB, ANDREA,URINE, JO1, TPO, ADNA, HISAB, UPE RAND, ANTIR, ALDOLASE, THYGLOB AB, SPE, DOMINGUEZ, SSB, SSA, CHROMATIN, CCP, ANDREA SERUM, CENTROME, MELODIE, RA #### [facility] , #### T4F, ESR, ADDONUAPLUS, CMP, CBC, TSH3, CK, CRP #### [facility] [address] Hemoglobin Test strip Ql (U) Ordered By: Shyam Montes on 03-13-2025 Hemoglobin Ql (U) Negative Negative [facility] Hemoglobin [Mass/volume] in BloodOrdered By: Shyam Montes on 03-13-2025 Hemoglobin (Bld) [Mass/Vol] 13.4 g/dL Normal 11.8-15.4 [facility] Comment on above: Performed By: #### S CL70AB, ANDREA,URINE, JO1, TPO, ADNA, HISAB, UPE RAND, ANTIR, ALDOLASE, THYGLOB AB, SPE, DOMINGUEZ, SSB, SSA, CHROMATIN, CCP, ANDREA SERUM, CENTROME, MELODIE, RA #### [facility] , #### T4F, ESR, ADDONUAPLUS, CMP, CBC, TSH3, CK, CRP #### [facility] [address] [place] [id number] [place] Histone Antibodieson 025 Histone Antibodies 0.6 Normal 0.0-0.9 [facility] Comment on above: Result Comment: Nega tive <1.0 Weak Positive 1.0 - 1.5 Moderate Positive 1.6 - 2.5 Strong Positive >2.5 Performed at: - [facility] [id number] [employer]: Chapito Castaneda MD, Phone: [phone] Performed By: #### S CL70AB, ANDREA,URINE, JO1, TPO, ADNA, HISAB, UPE RAND, ANTIR, ALDOLASE, THYGLOB AB, SPE, DOMINGUEZ, SSB, SSA, CHROMATIN, CCP, ANDREA SERUM, CENTROME, MELODIE, RA #### [facility] , #### T4F, ESR, ADDONUAPLUS, CMP, CBC, TSH3, CK, CRP #### [facility] [address] Hyaline casts [#/area] in Ur ine sediment by Automated countOrdered By: Shyam Montes on 03-13-2025 Hyaline casts Auto (Urine sed) [#/Area] None [LPF] 0-8 [facility] Immunofixation, (ANDREA), Urine on 03-13-2025 Immunofixation, (ANDREA), Urine Comment Normal . [facility] Comment on above: Result Comment: No m onoclonality detected. Performed at: - [facility] [id number] [employer]: Rolando Bess PhD, Phone: [phone] Performed By: #### S CL70AB, ANDREA,URINE, JO1, TPO, ADNA, HISAB, UPE RAND, ANTIR, ALDOLASE, THYGLOB AB, SPE, DOMINGUEZ, SSB, SSA, CHROMATIN, CCP, ANDREA SERUM, CENTROME, MELODIE, RA #### [facility] , #### T4F, ESR, ADDONUAPLUS, CMP, CBC, TSH3, CK, CRP #### [facility] [address] Immunofixation,Serumon 03-13 Immunofixation, Serum Comment: Normal . [facility] Comment on above: Result Comment: Pres ence of monoclonal protein is unclear at this time. Suggest repeat in 3 to 6 months if clinically indicated. Performed By: #### S CL70AB, ANDREA,URINE, JO1, TPO, ADNA, HISAB, UPE RAND, ANTIR, ALDOLASE, THYGLOB AB, SPE, DOMINGUEZ, SSB, SSA, CHROMATIN, CCP, ANDREA SERUM, CENTROME, MELODIE, RA #### [facility] , #### T4F, ESR, ADDONUAPLUS, CMP, CBC, TSH3, CK, CRP #### [address] Immunoglobulin A, Serum 377 mg/dL Normal 87-352 [facility] Comment on above: Performed By: #### S CL70AB, ANDREA,URINE, JO1, TPO, ADNA, HISAB, UPE RAND, ANTIR, ALDOLASE, THYGLOB AB, SPE, DOMINGUEZ, SSB, SSA, CHROMATIN, CCP, ANDREA SERUM, CENTROME, MELODIE, RA #### [facility] , #### T4F, ESR, ADDONUAPLUS, CMP, CBC, TSH3, CK, CRP #### [address] Immunoglobulin G 1184 mg/dL Normal [id number] [facility] Comment on above: Performed By: #### S CL70AB, ANDREA,URINE, JO1, TPO, ADNA, HISAB, UPE RAND, ANTIR, ALDOLASE, THYGLOB AB, SPE, DOMINGUEZ, SSB, SSA, CHROMATIN, CCP, ANDREA SERUM, CENTROME, MELODIE, RA #### [facility] , #### T4F, ESR, ADDONUAPLUS, CMP, CBC, TSH3, CK, CRP #### [place] [address] [place] Immunoglobulin M, Serum 122 mg/dL Normal 26-217 [facility] Comment on above: Result Comment: Perf ormed at: - [facility] [place] [address] [place], [place] [id number] [employer]: Rolando Bess PhD, Phone: [phone] Performed By: #### S CL70AB, ANDREA,URINE, JO1, TPO, ADNA, HISAB, UPE RAND, ANTIR, ALDOLASE, THYGLOB AB, SPE, DOMINGUEZ, SSB, SSA, CHROMATIN, CCP, ANDREA SERUM, CENTROME, MELODIE, RA #### [facility] , #### T4F, ESR, ADDONUAPLUS, CMP, CBC, TSH3, CK, CRP #### [address] JENNY-1 Antibodyon 03-13-2025 JENNY-1 Antibody <0.2 Normal 0.0-0.9 [facility] Comment on above: Performed By: #### S CL70AB, ANDREA,URINE, JO1, TPO, ADNA, HISAB, UPE RAND, ANTIR, ALDOLASE, THYGLOB AB, SPE, DOMINGUEZ, SSB, SSA, CHROMATIN, CCP, ANDREA SERUM, CENTROME, MELODIE, RA #### [facility] , #### T4F, ESR, ADDONUAPLUS, CMP, CBC, TSH3, CK, CRP #### [place] [address] [place] Ketones [Presence] in Urine by Test stripOrdered By: Shyam Montes on 03-13-2025 Ketones Ql (U) Negative Normal Negative [facility] Comment on above: Order Comment: Name Collection Type:: Clean-Voided Midstream Performed By: #### S CL70AB, ANDREA,URINE, JO1, TPO, ADNA, HISAB, UPE RAND, ANTIR, ALDOLASE, THYGLOB AB, SPE, DOMINGUEZ, SSB, SSA, CHROMATIN, CCP, ANDREA SERUM, CENTROME, MELODIE, RA #### [facility] , #### T4F, ESR, ADDONUAPLUS, CMP, CBC, TSH3, CK, CRP #### [place] [address] [place] Leukocyte esterase [Presence ] in Urine by Test stripOrdered By: Shyam Montes on 03-13-2025 Leukocyte esterase Test strip Ql (U) Negative Normal Negative [facility] Comment on above: Order Comment: Name Collection Type:: Clean-Voided Midstream Performed By: #### S CL70AB, ANDREA,URINE, JO1, TPO, ADNA, HISAB, UPE RAND, ANTIR, ALDOLASE, THYGLOB AB, SPE, DOMINGUEZ, SSB, SSA, CHROMATIN, CCP, ANDREA SERUM, CENTROME, MELODIE, RA #### [facility] , #### T4F, ESR, ADDONUAPLUS, CMP, CBC, TSH3, CK, CRP #### [facility] [address] Leukocytes [#/area] in Urine sediment by Automated countOrdered By: Shyam Montes on 03-13-2025 WBC Auto (Urine sed) [#/Area] None seen [HPF] 0-4 [facility] Leukocytes [#/volume] correc zhou for nucleated erythrocytes in Blood by Automated counOrdered By: Shyam Montes on 03-13-2025 WBC corrected for nucl RBC Auto (Bld) [#/Vol] 8.3 10*3/uL 3.8-11.6 [facility] Leukocytes [#/volume] in Blo od by Automated countOrdered By: Shyam Montes on 03-13-2025 WBC (Bld) [#/Vol] 8.3 10*3/uL Normal 3.8-11.6 [facility] Comment on above: Performed By: #### S CL70AB, ANDREA,URINE, JO1, TPO, ADNA, HISAB, UPE RAND, ANTIR, ALDOLASE, THYGLOB AB, SPE, DOMINGUEZ, SSB, SSA, CHROMATIN, CCP, ANDREA SERUM, CENTROME, MELODIE, RA #### [facility] , #### T4F, ESR, ADDONUAPLUS, CMP, CBC, TSH3, CK, CRP #### [facility] [address] [place] [address] [place] Lymphocytes [#/volume] in Bl ood by Automated countOrdered By: Shyam Montes on 03-13-2025 Lymphocytes (Bld) [#/Vol] 1.4 10*3/uL Normal 1.00-4.8 [facility] Comment on above: Performed By: #### S CL70AB, ANDREA,URINE, JO1, TPO, ADNA, HISAB, UPE RAND, ANTIR, ALDOLASE, THYGLOB AB, SPE, DOMINGUEZ, SSB, SSA, CHROMATIN, CCP, ANDREA SERUM, CENTROME, MELODIE, RA #### [facility] , #### T4F, ESR, ADDONUAPLUS, CMP, CBC, TSH3, CK, CRP #### [address] Lymphocytes/100 leukocytes i n Blood by Automated countOrdered By: Shyam Montes on 03-13-2025 Lymphocytes/100 WBC (Bld) 16.9 % Normal . [facility] Comment on above: Performed By: #### S CL70AB, ANDREA,URINE, JO1, TPO, ADNA, HISAB, UPE RAND, ANTIR, ALDOLASE, THYGLOB AB, SPE, DOMINGUEZ, SSB, SSA, CHROMATIN, CCP, ANDREA SERUM, CENTROME, MELODIE, RA #### [facility] , #### T4F, ESR, ADDONUAPLUS, CMP, CBC, TSH3, CK, CRP #### [address] MCH [Entitic mass] by Automa zhou countOrdered By: Shyam Montes on 03-13-2025 MCH (RBC) [Entitic mass] 29.4 pg Normal 24.7-34.3 [facility] Comment on above: Performed By: #### S CL70AB, ANDREA,URINE, JO1, TPO, ADNA, HISAB, UPE RAND, ANTIR, ALDOLASE, THYGLOB AB, SPE, DOMINGUEZ, SSB, SSA, CHROMATIN, CCP, ANDREA SERUM, CENTROME, MELODIE, RA #### [facility] , #### T4F, ESR, ADDONUAPLUS, CMP, CBC, TSH3, CK, CRP #### [address] MCHC Auto (RBC) [Mass/Vol]Or dered By: Shyam Montes on 03-13-2025 MCHC (RBC) [Mass/Vol] 33.7 g/dL 32.0-35.0 [facility] MCV [Entitic volume] by Auto mated countOrdered By: Shyam Montes on 03-13-2025 MCV (RBC) [Entitic vol] 87.1 fL Normal 80-100 [facility] Comment on above: Performed By: #### S CL70AB, ANDREA,URINE, JO1, TPO, ADNA, HISAB, UPE RAND, ANTIR, ALDOLASE, THYGLOB AB, SPE, DOMINGUEZ, SSB, SSA, CHROMATIN, CCP, ANDREA SERUM, CENTROME, MELODIE, RA #### [facility] , #### T4F, ESR, ADDONUAPLUS, CMP, CBC, TSH3, CK, CRP #### [facility] [address] [place] [address] [place] Monocytes [#/volume] in Bloo d by Automated countOrdered By: Shyam Montes on 03-13-2025 Monocytes (Bld) [#/Vol] 0.5 10*3/uL Normal 0.0-0.8 [facility] Comment on above: Performed By: #### S CL70AB, ANDREA,URINE, JO1, TPO, ADNA, HISAB, UPE RAND, ANTIR, ALDOLASE, THYGLOB AB, SPE, DOMINGUEZ, SSB, SSA, CHROMATIN, CCP, ANDREA SERUM, CENTROME, MELODIE, RA #### [facility] , #### T4F, ESR, ADDONUAPLUS, CMP, CBC, TSH3, CK, CRP #### [facility] [address] [place] [address] [place] Monocytes/100 leukocytes in Blood by Automated countOrdered By: Shyamflory Montes on 03-13-2025 Monocytes/100 WBC (Bld) 6.3 % Normal . [facility] Comment on above: Performed By: #### S CL70AB, ANDREA,URINE, JO1, TPO, ADNA, HISAB, UPE RAND, ANTIR, ALDOLASE, THYGLOB AB, SPE, DOMINGUEZ, SSB, SSA, CHROMATIN, CCP, ANDREA SERUM, CENTROME, MELODIE, RA #### [facility] , #### T4F, ESR, ADDONUAPLUS, CMP, CBC, TSH3, CK, CRP #### [facility] [address] [place] [address] [place] Neutrophils [#/volume] in Bl ood by Automated countOrdered By: Shyam Montes on 03-13-2025 Neutrophils (Bld) [#/Vol] 6.2 10*3/uL Normal 1.8-7.7 [facility] Comment on above: Performed By: #### S CL70AB, ANDREA,URINE, JO1, TPO, ADNA, HISAB, UPE RAND, ANTIR, ALDOLASE, THYGLOB AB, SPE, DOMINGUEZ, SSB, SSA, CHROMATIN, CCP, ANDREA SERUM, CENTROME, MELODIE, RA #### [facility] , #### T4F, ESR, ADDONUAPLUS, CMP, CBC, TSH3, CK, CRP #### [facility] [address] [place] [address] [place] Neutrophils/100 leukocytes i n Blood by Automated countOrdered By: Shyam Montes on 03-13-2025 Neutrophils/100 WBC (Bld) 75.0 % Normal . [facility] Comment on above: Performed By: #### S CL70AB, ANDREA,URINE, JO1, TPO, ADNA, HISAB, UPE RAND, ANTIR, ALDOLASE, THYGLOB AB, SPE, DOMINGUEZ, SSB, SSA, CHROMATIN, CCP, ANDREA SERUM, CENTROME, MELODIE, RA #### [facility] , #### T4F, ESR, ADDONUAPLUS, CMP, CBC, TSH3, CK, CRP #### [facility] [address] [place] [address] [place] Nitrite Test strip Ql (U)Ord ered By: Shyam Simon on 03-13-2025 Nitrite Ql (U) Negative Negative [facility] No Panel InformationOrdered By: Shyam Montes on 03-13-2025 Estimated GFR (CKD-EPI) > 60.0 mL/Min [facility] Creatinine Clearance (Chem N/A [facility] Nucleated erythrocytes [Pres ence] in Blood by Automated countOrdered By: Shyam Montes on 03-13-2025 Nucleated RBC Auto Ql (Bld) 0.1 /100{WBC} 0-0.5 [facility] Platelet mean volume [Entiti c volume] in Blood by Automated countOrdered By: Shyam Montes on 03-13-2025 Platelet mean volume (Bld) [Entitic vol] 7.8 fL Normal 6.3-10.7 [facility] Comment on above: Performed By: #### S CL70AB, ANDREA,URINE, JO1, TPO, ADNA, HISAB, UPE RAND, ANTIR, ALDOLASE, THYGLOB AB, SPE, DOMINGUEZ, SSB, SSA, CHROMATIN, CCP, ANDREA SERUM, CENTROME, MELODIE, RA #### [facility] , #### T4F, ESR, ADDONUAPLUS, CMP, CBC, TSH3, CK, CRP #### [facility] [address] [place] [address] [place] Platelets [#/volume] in Bloo d by Automated countOrdered By: Shyam Castillorow on 03-13-2025 Platelets (Bld) [#/Vol] 401 10*3/uL Normal 150-450 [facility] Comment on above: Performed By: #### S CL70AB, ANDREA,URINE, JO1, TPO, ADNA, HISAB, UPE RAND, ANTIR, ALDOLASE, THYGLOB AB, SPE, DOMINGUEZ, SSB, SSA, CHROMATIN, CCP, ANDREA SERUM, CENTROME, MELODIE, RA #### [facility] , #### T4F, ESR, ADDONUAPLUS, CMP, CBC, TSH3, CK, CRP #### [facility] [address] [place] [address] [place] Potassium [Moles/volume] in Serum or PlasmaOrdered By: Shyam Castillorow on 03-13-2025 Potassium [Moles/Vol] 3.9 mmol/L Normal 3.5-5.1 [facility] Comment on above: Performed By: #### S CL70AB, ANDREA,URINE, JO1, TPO, ADNA, HISAB, UPE RAND, ANTIR, ALDOLASE, THYGLOB AB, SPE, DOMINGUEZ, SSB, SSA, CHROMATIN, CCP, ANDREA SERUM, CENTROME, MELODIE, RA #### [facility] , #### T4F, ESR, ADDONUAPLUS, CMP, CBC, TSH3, CK, CRP #### [facility] [address] Protein Electro, Random Urin garima 03-13-2025 Albumin, Urine 41.1 % Normal . [facility] Comment on above: Performed By: #### S CL70AB, ANDREA,URINE, JO1, TPO, ADNA, HISAB, UPE RAND, ANTIR, ALDOLASE, THYGLOB AB, SPE, DOMINGUEZ, SSB, SSA, CHROMATIN, CCP, ANDREA SERUM, CENTROME, MELODIE, RA #### [facility] , #### T4F, ESR, ADDONUAPLUS, CMP, CBC, TSH3, CK, CRP #### [facility] [address] [place] [address] [place] Rsjqr-1-Cguccrda, Urine 3.9 % Normal . [facility] Comment on above: Performed By: #### S CL70AB, ANDREA,URINE, JO1, TPO, ADNA, HISAB, UPE RAND, ANTIR, ALDOLASE, THYGLOB AB, SPE, DOMINGUEZ, SSB, SSA, CHROMATIN, CCP, ANDREA SERUM, CENTROME, MELODIE, RA #### [facility] , #### T4F, ESR, ADDONUAPLUS, CMP, CBC, TSH3, CK, CRP #### [facility] [address] Jhxwq-[id number]-Bwdbsvas, Urine 7.3 % Normal . [facility] Comment on above: Performed By: #### S CL70AB, ANDREA,URINE, JO1, TPO, ADNA, HISAB, UPE RAND, ANTIR, ALDOLASE, THYGLOB AB, SPE, DOMINGUEZ, SSB, SSA, CHROMATIN, CCP, ANDREA SERUM, CENTROME, MELODIE, RA #### [facility] , #### T4F, ESR, ADDONUAPLUS, CMP, CBC, TSH3, CK, CRP #### [address] Beta Globulin, Urine 13.4 % Normal . [facility] Comment on above: Performed By: #### S CL70AB, ANDREA,URINE, JO1, TPO, ADNA, HISAB, UPE RAND, ANTIR, ALDOLASE, THYGLOB AB, SPE, DOMINGUEZ, SSB, SSA, CHROMATIN, CCP, ANDREA SERUM, CENTROME, MELODIE, RA #### [facility] , #### T4F, ESR, ADDONUAPLUS, CMP, CBC, TSH3, CK, CRP #### [address] Gamma Globulin, Urine 34.2 % Normal . [facility] Comment on above: Performed By: #### S CL70AB, ANDREA,URINE, JO1, TPO, ADNA, HISAB, UPE RAND, ANTIR, ALDOLASE, THYGLOB AB, SPE, DOMINGUEZ, SSB, SSA, CHROMATIN, CCP, ANDREA SERUM, CENTROME, MELODIE, RA #### [facility] , #### T4F, ESR, ADDONUAPLUS, CMP, CBC, TSH3, CK, CRP #### [address] M-Vitaliy % Not Observed Normal Not Observed [facility] Comment on above: Performed By: #### S CL70AB, ANDREA,URINE, JO1, TPO, ADNA, HISAB, UPE RAND, ANTIR, ALDOLASE, THYGLOB AB, SPE, DOMINGUEZ, SSB, SSA, CHROMATIN, CCP, ANDREA SERUM, CENTROME, MELODIE, RA #### [facility] , #### T4F, ESR, ADDONUAPLUS, CMP, CBC, TSH3, CK, CRP #### [address] Please Note: Comment Normal . [facility] Comment on above: Result Comment: Prot ein electrophoresis scan will follow via computer, mail, or bilingual social worker delivery. PERFORMED BY: [place] [address] PATHOLOGIST FORDER OPERATOR DIAN MENDIETA M.D. Performed By: #### S CL70AB, ANDREA,URINE, JO1, TPO, ADNA, HISAB, UPE RAND, ANTIR, ALDOLASE, THYGLOB AB, SPE, DOMINGUEZ, SSB, SSA, CHROMATIN, CCP, ANDREA SERUM, CENTROME, MELODIE, RA #### [facility] , #### T4F, ESR, ADDONUAPLUS, CMP, CBC, TSH3, CK, CRP #### [address] Protein (U) [Mass/Vol] mg/dL Normal Not Estab. Th e [facility] Comment on above: Result Comment: Ve rified by repeat analysis Performed By: #### S [id number], ANDREA,URINE, JO1, TPO, ADNA, HISAB, UPE RAND, ANTIR, ALDOLASE, THYGLOB AB, SPE, DOMINGUEZ, SSB, SSA, CHROMATIN, CCP, ANDREA SERUM, CENTROME, MELODIE, RA #### [facility] , #### T4F, ESR, ADDONUAPLUS, CMP, CBC, TSH3, CK, CRP #### [address] Protein Electrophoresis, Ser umon 03-13-2025 Albumin [Mass/Vol] 4.0 g/dL Normal 2.9-4.4 The [facility] Comment on above: Performed By: #### S CL70AB, ANDREA,URINE, JO1, TPO, ADNA, HISAB, UPE RAND, ANTIR, ALDOLASE, THYGLOB AB, SPE, DOMINGUEZ, SSB, SSA, CHROMATIN, CCP, ANDREA SERUM, CENTROME, MELODIE, RA #### [facility] , #### T4F, ESR, ADDONUAPLUS, CMP, CBC, TSH3, CK, CRP #### [facility] [address] Albumin/Globulin [Mass ratio] 1.1 {ratio} Normal 0.7-1.7 The [facility] Comment on above: Performed By: #### S CL70AB, ANDREA,URINE, JO1, TPO, ADNA, HISAB, UPE RAND, ANTIR, ALDOLASE, THYGLOB AB, SPE, DOMINGUEZ, SSB, SSA, CHROMATIN, CCP, ANDREA SERUM, CENTROME, MELODIE, RA #### [facility] , #### T4F, ESR, ADDONUAPLUS, CMP, CBC, TSH3, CK, CRP #### [address] Ratlw-5-Ipmbrinr 0.2 g/dL Normal 0.0-0.4 The [facility] Comment on above: Performed By: #### S CL70AB, ANDREA,URINE, JO1, TPO, ADNA, HISAB, UPE RAND, ANTIR, ALDOLASE, THYGLOB AB, SPE, DOMINGUEZ, SSB, SSA, CHROMATIN, CCP, ANDREA SERUM, CENTROME, MELODIE, RA #### [facility] , #### T4F, ESR, ADDONUAPLUS, CMP, CBC, TSH3, CK, CRP #### [address] Vbjam-4-Qqprookn 0.8 g/dL Normal 0.4-1.0 The [facility] Comment on above: Performed By: #### S CL70AB, ANDREA,URINE, JO1, TPO, ADNA, HISAB, UPE RAND, ANTIR, ALDOLASE, THYGLOB AB, SPE, DOMINGUEZ, SSB, SSA, CHROMATIN, CCP, ANDREA SERUM, CENTROME, MELODIE, RA #### [facility] , #### T4F, ESR, ADDONUAPLUS, CMP, CBC, TSH3, CK, CRP #### [address] Beta Globulin 1.5 g/dL Normal 0.7-1.3 [facility] Comment on above: Performed By: #### S CL70AB, ANDREA,URINE, JO1, TPO, ADNA, HISAB, UPE RAND, ANTIR, ALDOLASE, THYGLOB AB, SPE, DOMINGUEZ, SSB, SSA, CHROMATIN, CCP, ANDREA SERUM, CENTROME, MELODIE, RA #### [facility] , #### T4F, ESR, ADDONUAPLUS, CMP, CBC, TSH3, CK, CRP #### [facility] [address] Gamma Globulin 1.2 g/dL Normal 0.4-1.8 [facility] Comment on above: Performed By: #### S CL70AB, ANDREA,URINE, JO1, TPO, ADNA, HISAB, UPE RAND, ANTIR, ALDOLASE, THYGLOB AB, SPE, DOMINGUEZ, SSB, SSA, CHROMATIN, CCP, ANDREA SERUM, CENTROME, MELODIE, RA #### [facility] , #### T4F, ESR, ADDONUAPLUS, CMP, CBC, TSH3, CK, CRP #### [facility] [address] Globulin (S) [Mass/Vol] 3.7 g/dL Normal 2.2-3.9 [facility] Comment on above: Performed By: #### S CL70AB, ANDREA,URINE, JO1, TPO, ADNA, HISAB, UPE RAND, ANTIR, ALDOLASE, THYGLOB AB, SPE, DOMINGUEZ, SSB, SSA, CHROMATIN, CCP, ANDREA SERUM, CENTROME, MELODIE, RA #### [facility] , #### T4F, ESR, ADDONUAPLUS, CMP, CBC, TSH3, CK, CRP #### [address] M-Vitaliy Not Observed Normal Not Observed [facility] Comment on above: Performed By: #### S CL70AB, ANDREA,URINE, JO1, TPO, ADNA, HISAB, UPE RAND, ANTIR, ALDOLASE, THYGLOB AB, SPE, DOMINGUEZ, SSB, SSA, CHROMATIN, CCP, ANDREA SERUM, CENTROME, MELODIE, RA #### [facility] , #### T4F, ESR, ADDONUAPLUS, CMP, CBC, TSH3, CK, CRP #### [facility] [address] Protein [Mass/Vol] 7.7 g/dL Normal 6.0-8.5 [facility] Comment on above: Performed By: #### S CL70AB, ANDREA,URINE, JO1, TPO, ADNA, HISAB, UPE RAND, ANTIR, ALDOLASE, THYGLOB AB, SPE, DOMINGUEZ, SSB, SSA, CHROMATIN, CCP, ANDREA SERUM, CENTROME, MELODIE, RA #### [facility] , #### T4F, ESR, ADDONUAPLUS, CMP, CBC, TSH3, CK, CRP #### [address] SPE-Note Comment Normal . [facility] Comment on above: Result Comment: Prot ein electrophoresis scan will follow via computer, mail, or bilingual social worker delivery. Performed at: - [place] [id number] [employer] Conveyor Line: Rolando Bess PhD, Phone: [phone] Performed By: #### S CL70AB, ANDREA,URINE, JO1, TPO, ADNA, HISAB, UPE RAND, ANTIR, ALDOLASE, THYGLOB AB, SPE, DOMINGUEZ, SSB, SSA, CHROMATIN, CCP, ANDREA SERUM, CENTROME, MELODIE, RA #### [facility] , #### T4F, ESR, ADDONUAPLUS, CMP, CBC, TSH3, CK, CRP #### [address] Protein Test strip (U) [Mass /Vol]Ordered By: Shyam Montes on 03-13-2025 Protein (U) [Mass/Vol] Negative Negative [facility] Protein [Mass/volume] in Ser um or PlasmaOrdered By: Shyam Montes on 03-13-2025 Protein [Mass/Vol] 7.8 g/dL Normal 6.4-8.9 [facility] Comment on above: Performed By: #### S CL70AB, ANDREA,URINE, JO1, TPO, ADNA, HISAB, UPE RAND, ANTIR, ALDOLASE, THYGLOB AB, SPE, DOMINGUEZ, SSB, SSA, CHROMATIN, CCP, ANDREA SERUM, CENTROME, MELODIE, RA #### [facility] , #### T4F, ESR, ADDONUAPLUS, CMP, CBC, TSH3, CK, CRP #### [facility] [address] Rheumatoid Factoron 03-13-20 Rheumatoid Factor <10.0 Normal <14.0 [facility] Comment on above: Performed By: #### S CL70AB, ANDREA,URINE, JO1, TPO, ADNA, HISAB, UPE RAND, ANTIR, ALDOLASE, THYGLOB AB, SPE, DOMINGUEZ, SSB, SSA, CHROMATIN, CCP, ANDREA SERUM, CENTROME, MELODIE, RA #### [facility] , #### T4F, ESR, ADDONUAPLUS, CMP, CBC, TSH3, CK, CRP #### [facility] [address] [place] [address] SS-A/Ro Sjogrens Antibodyon 03-13-2025 SS-A/Ro Sjogrens Antibody <0.2 Normal 0.0-0.9 [facility] Comment on above: Performed By: #### S CL70AB, ANDREA,URINE, JO1, TPO, ADNA, HISAB, UPE RAND, ANTIR, ALDOLASE, THYGLOB AB, SPE, DOMINGUEZ, SSB, SSA, CHROMATIN, CCP, ANDREA SERUM, CENTROME, MELODIE, RA #### [facility] , #### T4F, ESR, ADDONUAPLUS, CMP, CBC, TSH3, CK, CRP #### [facility] [address] [place] [address] SS-B/La Sjogrens Antibodyon 03-13-2025 SS-B/La Sjogrens Antibody <0.2 Normal 0.0-0.9 [facility] Comment on above: Performed By: #### S CL70AB, ANDREA,URINE, JO1, TPO, ADNA, HISAB, UPE RAND, ANTIR, ALDOLASE, THYGLOB AB, SPE, DOMINGUEZ, SSB, SSA, CHROMATIN, CCP, ANDREA SERUM, CENTROME, MELODIE, RA #### [facility] , #### T4F, ESR, ADDONUAPLUS, CMP, CBC, TSH3, CK, CRP #### [facility] [address] Scleroderma 70 Antibodieson 03-13-2025 Scleroderma 70 Antibodies <0.2 Normal 0.0-0.9 [facility] Comment on above: Performed By: #### S CL70AB, ANDREA,URINE, JO1, TPO, ADNA, HISAB, UPE RAND, ANTIR, ALDOLASE, THYGLOB AB, SPE, DOMINGUEZ, SSB, SSA, CHROMATIN, CCP, ANDREA SERUM, CENTROME, MELODIE, RA #### [facility] , #### T4F, ESR, ADDONUAPLUS, CMP, CBC, TSH3, CK, CRP #### [facility] [address] Serum globulin measurement b y calculation (mass/volume)Ordered By: Shyam Montes on 03-13-2025 Globulin (S) [Mass/Vol] 3.0 g/dL Normal [facility] Comment on above: Performed By: #### S CL70AB, ANDREA,URINE, JO1, TPO, ADNA, HISAB, UPE RAND, ANTIR, ALDOLASE, THYGLOB AB, SPE, DOMINGUEZ, SSB, SSA, CHROMATIN, CCP, ANDREA SERUM, CENTROME, MELODIE, RA #### [facility] , #### T4F, ESR, ADDONUAPLUS, CMP, CBC, TSH3, CK, CRP #### [facility] [address] Serum or plasma albumin/glob ulin mass ratioOrdered By: Shyam Montes on 03-13-2025 Albumin/Globulin [Mass ratio] 1.6 {ratio} Normal [facility] Comment on above: Performed By: #### S CL70AB, ANDREA,URINE, JO1, TPO, ADNA, HISAB, UPE RAND, ANTIR, ALDOLASE, THYGLOB AB, SPE, DOMINGUEZ, SSB, SSA, CHROMATIN, CCP, ANDREA SERUM, CENTROME, MELODIE, RA #### [facility] , #### T4F, ESR, ADDONUAPLUS, CMP, CBC, TSH3, CK, CRP #### [facility] [address] Serum or plasma anion gap de terminationOrdered By: Shyam Montes on 03-13-2025 Anion gap [Moles/Vol] 11.4 mmol/L Normal 6.0-15.0 [facility] Comment on above: Performed By: #### S CL70AB, ANDREA,URINE, JO1, TPO, ADNA, HISAB, UPE RAND, ANTIR, ALDOLASE, THYGLOB AB, SPE, DOMINGUEZ, SSB, SSA, CHROMATIN, CCP, ANDREA SERUM, CENTROME, MELODIE, RA #### [facility] , #### T4F, ESR, ADDONUAPLUS, CMP, CBC, TSH3, CK, CRP #### [address] Sodium [Moles/volume] in Ser um or PlasmaOrdered By: Shyam Montes on 03-13-2025 Sodium [Moles/Vol] 140 mmol/L Normal 136-145 [facility] Comment on above: Performed By: #### S CL70AB, ANDREA,URINE, JO1, TPO, ADNA, HISAB, UPE RAND, ANTIR, ALDOLASE, THYGLOB AB, SPE, DOMINGUEZ, SSB, SSA, CHROMATIN, CCP, ANDREA SERUM, CENTROME, MELODIE, RA #### [facility] , #### T4F, ESR, ADDONUAPLUS, CMP, CBC, TSH3, CK, CRP #### [facility] [address] [place] [address] Specific gravity Test strip (U) [Rel density]Ordered By: Hsyam Simon on 03-13-2025 Specific gravity (U) [Rel density] 1.006 1.001-1.030 [facility] Thyroid Peroxidase Antibodie son 03-13-2025 Thyroid Peroxidase Antibodies 27 Normal 0-34 [facility] Comment on above: Result Comment: Perf ormed at: - [facility] [address] [id number] [employer] Conveyor Line: Rolando Bess PhD, Phone: [phone] Performed By: #### S CL70AB, ANDREA,URINE, JO1, TPO, ADNA, HISAB, UPE RAND, ANTIR, ALDOLASE, THYGLOB AB, SPE, DOMINGUEZ, SSB, SSA, CHROMATIN, CCP, ANDREA SERUM, CENTROME, MELODIE, RA #### [facility] , #### T4F, ESR, ADDONUAPLUS, CMP, CBC, TSH3, CK, CRP #### [address] Thyrotropin [Units/volume] i n Serum or PlasmaOrdered By: Shyam Montes on 03-13-2025 TSH Qn 1.18 m[IU]/L Normal 0.45-5.33 [facility] Comment on above: Result Comment: PERF ORMED BY: [place] [address] PATHOLOGIST FORDER OPERATOR DIAN MENDIETA M.D. Performed By: #### S CL70AB, ANDREA,URINE, JO1, TPO, ADNA, HISAB, UPE RAND, ANTIR, ALDOLASE, THYGLOB AB, SPE, DOMINGUEZ, SSB, SSA, CHROMATIN, CCP, ANDREA SERUM, CENTROME, MELODIE, RA #### [facility] , #### T4F, ESR, ADDONUAPLUS, CMP, CBC, TSH3, CK, CRP #### [address] Thyroxine (T4) free [Mass/vo lume] in Serum or PlasmaOrdered By: Shyam Montes on 03-13-2025 Free T4 [Mass/Vol] 0.63 ng/dL Normal 0.61-1.12 [facility] Comment on above: Performed By: #### S CL70AB, ANDREA,URINE, JO1, TPO, ADNA, HISAB, UPE RAND, ANTIR, ALDOLASE, THYGLOB AB, SPE, DOMINGUEZ, SSB, SSA, CHROMATIN, CCP, ANDREA SERUM, CENTROME, MELODIE, RA #### [facility] , #### T4F, ESR, ADDONUAPLUS, CMP, CBC, TSH3, CK, CRP #### [facility] [address] [place] [address] [place] Urea nitrogen [Mass/volume] in Serum or PlasmaOrdered By: Shyam Montes on 03-13-2025 Urea nitrogen [Mass/Vol] 9 mg/dL Normal 7-25 [facility] Comment on above: Performed By: #### S CL70AB, ANDREA,URINE, JO1, TPO, ADNA, HISAB, UPE RAND, ANTIR, ALDOLASE, THYGLOB AB, SPE, DOMINGUEZ, SSB, SSA, CHROMATIN, CCP, ANDREA SERUM, CENTROME, MELODIE, RA #### [facility] , #### T4F, ESR, ADDONUAPLUS, CMP, CBC, TSH3, CK, CRP #### [facility] [address] Urobilinogen Test strip (U) [Mass/Vol]Ordered By: Shyam Montes on 03-13-2025 Urobilinogen (U) [Mass/Vol] Normal mg/dL Normal [facility] pH of Urine by Test stripOrd ered By: Shyam Montes on 03-13-2025 pH (U) 7.5 [pH] Normal 5.0-9.0 [facility] Comment on above: Order Comment: Name Collection Type:: Clean-Voided Midstream Performed By: #### S CL70AB, ANDREA,URINE, JO1, TPO, ADNA, HISAB, UPE RAND, ANTIR, ALDOLASE, THYGLOB AB, SPE, DOMINGUEZ, SSB, SSA, CHROMATIN, CCP, ANDREA SERUM, CENTROME, MELODIE, RA #### [facility] , #### T4F, ESR, ADDONUAPLUS, CMP, CBC, TSH3, CK, CRP #### [facility] [address] C-REACTIVE PROTEINon 025 CRP [Mass/Vol] 10.9 mg/L High <8.0 [facility] Comment on above: Performed By: #### 8 09, [id number], 4420 #### [facility] of [address], [address] [place], [place] [id number] Stenotypist: Sebastian Urbano MD #### [id number] #### [facility]/[place] [id number] [facility] [place] Stenotypist: Avtar Beckett M.D.,PhD LYME DISEASE ANTIBODY (IGG), IMMUNOBLOTon 12-04-2024 18 KD (IGG) BAND Non-Reactive Normal [facility] Comment on above: Performed By: #### 8 , 85775, 4420 #### [facility] of [address], [address] [place], [place] [address] Stenotypist: Sebastian Urbano MD #### #### [facility]/[address] [place], [place] Stenotypist: Avtar Beckett M.D.,PhD 23 KD (IGG) BAND Non-Reactive Normal [facility] Comment on above: Performed By: #### 8 , 59746, 4420 #### [facility] of [address], [address] [place], [place] [id number] Stenotypist: Sebastian Urbano MD #### #### [facility]/[place] [id number] [facility] [place] Stenotypist: Avtar Beckett M.D.,PhD 28 KD (IGG) BAND Non-Reactive Normal [facility] Comment on above: Performed By: #### 8 09, 22815, 4420 #### [facility] of [facility] [address], [address] [place] [address] Stenotypist: Sebastian Urbano MD #### [id number] #### [facility] [place] Stenotypist: Avtar Beckett M.D.,PhD 30 KD (IGG) BAND Non-Reactive Normal [facility] Comment on above: Performed By: #### 8 , 24079, 4420 #### [facility] of [facility] [address], [address] [place] [id number] Stenotypist: Sebastian Urbano MD #### [id number] #### [facility] [place] Stenotypist: Avtar Beckett M.D.,PhD 39 KD (IGG) BAND Non-Reactive Normal [facility] Comment on above: Performed By: #### 8 , 60996, 4420 #### [facility] of [facility] [address], [address] [place], [place] [phone] Stenotypist: Sebastian Urbano MD #### [id number] #### [facility] [place] Stenotypist: Avtar Beckett M.D.,PhD 41 KD (IGG) BAND Reactive Abnormal [facility] Comment on above: Performed By: #### 8 , 68755, 4420 #### [facility] of [facility] [address], [address] [place] [address] Stenotypist: Sebastian Urbano MD #### [id number] #### [facility] [place] Stenotypist: Avtar Beckett M.D.,PhD 45 KD (IGG) BAND Non-Reactive Normal [facility] Comment on above: Performed By: #### 8 , 47792, 44 #### [facility] of [place] [address], [address] [place] [address] Stenotypist: Sebastian Urbano MD #### #### [facility] [place] Stenotypist: Avtar Beckett M.D.,PhD 58 KD (IGG) BAND Non-Reactive Normal [facility] Comment on above: Performed By: #### 8 , 44983, 44 #### [facility] of [place] [address] , [address] [place] [address] Stenotypist: Sebastian Urbano MD #### #### [facility] [place] Stenotypist: Avtar Beckett M.D.,PhD 66 KD (IGG) BAND Non-Reactive Normal [facility] Comment on above: Performed By: #### 8 , , 44 #### [facility] of [address] , [address] [place], [place] [phone] Stenotypist: Sebastian Urbano MD #### [id number] #### [facility] [place] Stenotypist: Avtar Beckett M.D.,PhD 93 KD (IGG) BAND Non-Reactive Normal [facility] Comment on above: Result Comment: As p er CDC criteria, a Lyme disease IgG immunoblot must show reactivity to at least 5 of 10 specific borrelial proteins to be considered positive. Although considered negative, reactivity to fewer borrelial proteins may indicate recent B. burgdorferi infection and warrant testing of a later sample. In rare instances, reactivity may represent antibodies induced by exposure to other spirochetes. Lyme immunoblot testing should only be performed on samples from patients who have had a Positive or Equivocal result in a screening assay. Performed By: #### 8 , 75079, 4420 #### [facility] [place] [address] , [address] [place] [address] Stenotypist: Sebastian Urbano MD ### #### [facility] [place] Stenotypist: Avtar Beckett M.D.,PhD LYME DISEASE AB(IGG),BLOT Negative Normal NEGATIVE [facility] Comment on above: Performed By: #### 03 30, 39250, 4420 #### [facility] of [facility] [address] , [address] [place] [address] Stenotypist: Sebastian Urbano MD #### #### [facility]/[place] [address]25 [facility] [place] Stenotypist: Avtar Beckett M.D.,PhD RHEUMATOID ARTHRITIS DIAGNOS TIC PANEL 3 12-04-2024 CYCLIC CITRULLINATED PEPTIDE (CCP) AB (IGG) <16 Normal <20 [facility] Comment on above: Order Comment: FASTI NG:NO FASTING: NO Result Comment: Negative: <20 Weak Positive: 20 - 39 Moderate Positive: 40 - 59 Strong Positive: >59 Performed By: #### 03 30, 85892, 4420 #### [facility] [address] , [address] [place] [address] Stenotypist: Sebsatian Urbano MD #### #### [facility] [address] [place] Stenotypist: Avtar Beckett M.D.,PhD RHEUMATOID FACTOR (IGA) <5 Normal <=6 [facility] Comment on above: Order Comment: FASTI NG:NO FASTING: NO Performed By: #### 03 30, 29629, 4420 #### [facility] [address] , [address] [place] [address] Stenotypist: Sebatsian Urbano MD ### #### [facility] [address] [place] Stenotypist: Avtar Beckett M.D.,PhD RHEUMATOID FACTOR (IGG) 11 U High <=6 [facility] Comment on above: Order Comment: FASTI NG:NO FASTING: NO Performed By: #### 8 09, 46340, 4420 #### [facility] [address], [address] [place], [place] [id number] Stenotypist: Sebastian Urbano MD #### #### [facility]/[address] [place] Stenotypist: Avtar Beckett M.D.,PhD RHEUMATOID FACTOR (IGM) <5 Normal <=6 [facility] Comment on above: Order Comment: FASTI NG:NO FASTING: NO Performed By: #### 8 09, 31034, 4420 #### [facility] [address], [address] [place] [address] Stenotypist: Sebastian Urbano MD #### #### [facility]/[address] [place] Stenotypist: Avtar Beckett M.D.,PhD SJOGREN'S ANTIBODY (SS-A) <1.0 Normal [facility] Comment on above: Order Comment: FASTI NG:NO FASTING: NO Result Comment: Reference Range: < 1.0 NEG AI Performed By: #### 8 09, 85327, 4420 #### [facility] [address], [address] [place], [place] [phone] Stenotypist: Sebastian Urbano MD #### #### [facility]/[address] [place] Stenotypist: Avtar Beckett M.D.,PhD SJOGREN'S ANTIBODY (SS-B) <1.0 Normal [facility] Comment on above: Order Comment: FASTI NG:NO FASTING: NO Result Comment: Reference Range: < 1.0 NEG AI Performed By: #### 8 09, 59887, 4420 #### [facility] [address], [address] [place], [place] [phone] Stenotypist: Sebastian Urbano MD #### [id number] #### [facility] [address] [facility] [place] Stenotypist: Avtar Beckett M.D.,PhD SED RATE BY MODIFIED WESTERG RENon 12-04-2024 SED RATE BY MODIFIED WESTERGREN 29 mm/h Normal < OR = 30 [facility] Comment on above: Performed By: #### 8 09, 24454, 4420 #### [facility] [address] [facility], [address] [place] [address] Stenotypist: Sebastian Urbano MD #### [id number] #### [facility] [address] [facility] [place] Stenotypist: Avtar Beckett M.D.,PhD Laboratory - Hematology and Cell countson 11-28-2024 HbA1c (Bld) [Mass fraction] 5.8 % [facility] ComputeNext No Panel Informationon 11-28 [facility] Laboratory - Hematology and Cell countson 06-07-2024 HbA1c (Bld) [Mass fraction] 5.8 % [facility] [employer] No Panel Informationon 06-07 [facility] MG MAMM SCREEN 3D PIERRE CADon 11-17-2021 MG MAMM SCREEN 3D PIERRE CAD Patient: SULEMAN RAMIREZ Exam Date: 11/17/2021 : 1960 Gender:F Ordering : DR VICTOR HUGO SR [place] Admission #: [id number] Family : Order #: [id number] CLICK HERE TO VIEW EXAM RADIOLOGY REPORT [...] at age 76. LOCATION: [facility] BREAST COMPOSITION: Scattered areas fibroglandular density. [...] BIOPSIED. Dictated by: Rigo Mejia M.D. on 11/17/2021 at 14:02 Approved by: Rigo Mejia M.D. on 11/17/2021 at 14:06 Normal [facility] Vital Signs Date Time Vital Sign Value Performing Clinician Faci lity 12-20-2024 09:56-0400 Body height 160 cm Chencho Dillard MD Work Phone: [facility] 12-20-2024 09:56-0400 Body mass index (BMI) [Ratio] 21.97 kg/m2 Chencho Dillard MD Work Phone: [facility] 12-20-2024 09:56-0400 Body weight 56.25 kg Chencho Dillard MD Work Phone: [facility] 12-20-2024 09:56-0400 Diastolic blood pressure 74 mm[Hg] Chencho Dillard MD Work Phone: [facility] 12-20-2024 09:56-0400 Heart rate 92 /min Chencho Dillard MD Work Phone: [facility] 12-20-2024 09:56-0400 SaO2% (BldA) [Mass fraction] 99 % Chencho Dillard MD Work Phone: [facility] 12-20-2024 09:56-0400 Systolic blood pressure 132 mm[Hg] Chencho Dillard MD Work Phone: [facility] 11-28-2024 10:16-0400 Body height 160 cm Chencho Dillard MD Work Phone: [facility] 11-28-2024 10:16-0400 Body mass index (BMI) [Ratio] 22.32 kg/m2 Chencho Dillard MD Work Phone: [facility] 11-28-2024 10:16-0400 Body weight 57.15 kg Chencho Dillard MD Work Phone: [facility] 11-28-2024 10:16-0400 Diastolic blood pressure 72 mm[Hg] Chencho Dillard MD Work Phone: [facility] 11-28-2024 10:16-0400 Heart rate 94 /min Chencho Dillard MD Work Phone: [facility] 11-28-2024 10:16-0400 SaO2% (BldA) [Mass fraction] 98 % Chencho Dillard MD Work Phone: [facility] 11-28-2024 10:16-0400 Systolic blood pressure 130 mm[Hg] Chencho Dillard MD Work Phone: [facility] 06-07-2024 10:49-0400 Body height 160 cm Chencho Dillard MD Work Phone: [facility] 06-07-2024 10:49-0400 Body mass index (BMI) [Ratio] 22.32 kg/m2 Chencho Dillard MD Work Phone: [facility] 06-07-2024 10:49-0400 Body weight 57.15 kg Chencho Dillard MD Work Phone: [facility] 06-07-2024 10:49-0400 Diastolic blood pressure 76 mm[Hg] Chencho Dillard MD Work Phone: [facility] 06-07-2024 10:49-0400 Heart rate 105 /min Chencho Dillard MD Work Phone: [facility] 06-07-2024 10:49-0400 SaO2% (BldA) [Mass fraction] 98 % Chencho Dillard MD Work Phone: [facility] 06-07-2024 10:49-0400 Systolic blood pressure 132 mm[Hg] Chencho Dillard MD Work Phone: [facility] Healthcare Encounters Encounter Date Encounter Type Care Provider Facility Start: 03-13-2025 End: 03-13-2025 Patient encounter procedure Shyam Montes MD -Lab [address] Work Phone: Start: 03-13-2025 End: 03-13-2025 ambulatory Chencho Dillard II Work Phone: [facility] Work Phone: Start: 12-20-2024 End: 12-20-2024 Bamboo flowsheet Chencho Dillard MD Work Phone: [facility] Start: 12-20-2024 End: 12-20-2024 Bamboo flowsisac Dillard MD Work Phone: [facility] Start: 12-20-2024 End: 12-20-2024 Office outpatient visit 15 minutes Chencho Dillard MD Work Phone: [facility] Comment on above: Pain of both shoulde r joints (Primary Dx); Abnormal laboratory test result; Pain of shoulder girdle Start: 12-20-2024 End: 12-20-2024 ambulatory CHENCHO DILLARD Not Available Start: 11-28-2024 End: 11-28-2024 Bamboo flowsisac Dillard MD Work Phone: [facility] Start: 11-28-2024 End: 11-28-2024 Bamboo flowsisac Dillard MD Work Phone: [facility] Start: 11-28-2024 End: 11-28-2024 Office outpatient visit 25 minutes Chencho Dillard MD Work Phone: [facility] Comment on above: Pain of both shoulde r joints (Primary Dx); Primary hypertension (CMS/HCC); Encounter for screening for malignant neoplasm of colon; Prediabetes Start: 11-28-2024 End: 11-28-2024 ambulatory CHENCHO DILLARD Not Available Start: 06-07-2024 End: 06-07-2024 Bamboo flowsisac Dillard MD Work Phone: [facility] Start: 06-07-2024 End: 06-07-2024 Bamboo amanda Dillard MD Work Phone: [facility] [...] 12-26-2023 ambulatory CHENCHO DILLARD Not Available Start: 11-17-2021 End: 11-18-[address] VICTOR HUGO SR Facility:H1 Procedures Date Procedure Procedure Detail Performing Clinician Start: 11-28-2024 Hemoglobin glycosylated a1c Chencho Dillard MD Work Phone: Start: 09-12-2024 Mammography Chencho Dillard MD Work Phone: Start: 06-07-2024 Hemoglobin glycosylated a1c Chencho Dillard MD Work Phone: Start: 06-23-2023 H/O: hysterectomy History of hysterectomy Chencho Dillard MD Work Phone: Start: 11-17-2021 Mammography Chencho Dillard MD Work Phone: Start: 02-04-2014 Colonoscopy Chencho Dillard MD Work Phone: Laboratory test resu lt abnormal Abnormal laboratory test result Chencho Dillard MD Work Phone: Plan of Treatment Date Care Activity Detail Author Start: 12-08-2025 Glaucoma screening Diabetes: Retinopathy Screening [facility] Start: 09-12-2025 Screening for malignant neoplasm of breast Mammogram [facility] Start: 06-08-2025 Urine screening for protein Diabetes: Urine Protein Screening [facility] Start: 04-22-2025 Influenza vaccination Influenza Vaccine (Season Ended) [facility] Start: 03-13-2025 Aldolase measurement [facility] Start: 03-13-2025 Antibody to Scl-70 measurement [facility] Start: 03-13-2025 PRECISION MACHINIST antibody measurement [facility] Start: 03-13-2025 [facility] Start: 02-27-2025 Hemoglobin A1c measurement Diabetes: Hemoglobin A1C [facility] Start: 12-20-2024 End: 12-20-2024 Patient encounter procedure [facility] Comment on above: Arrived Start: 11-28-2024 End: 11-28-2025 C reactive protein [Mass/volume] in Serum or Plasma C-reactive protein Lab Routine Pain of both shoulder joints Expected: 11/28/2024 (Approximate), Expires: 11/28/2025 [facility] Comment on above: Expected: 11/28/2024 (Approximate), Expi res: 11/28/2025 Start: 11-28-2024 End: 11-28-2025 Erythrocyte sedimentation rate Sedimentation rate, automated Lab Routine Pain of both shoulder joints Expected: 11/28/2024 (Approximate), Expires: 11/28/2025 [facility] Comment on above: Expected: 11/28/2024 (Approximate), Expi res: 11/28/2025 Start: 11-28-2024 End: 11-28-2025 LYME DISEASE ANTIBODY (IGG), IMMUNOBLOT LYME DISEASE ANTIBODY (IGG), IMMUNOBLOT Lab Routine Pain of both shoulder joints Expected: 11/28/2024 (Approximate), Expires: 11/28/2025 [facility] Comment on above: Expected: 11/28/2024 (Approximate), Expi res: 11/28/2025 Start: 11-28-2024 End: 11-28-2025 Noninvasive colorectal cancer DNA and occult blood screening [Presence] in Stool Cologuard colon cancer screening Lab Routine Encounter for screening for malignant neoplasm of colon Expected: 11/28/2024 (Approximate), Expires: 11/28/2025 [facility] Work Phone: Comment on above: Expected: 11/28/2024 (Approximate), Expi res: 11/28/2025 Start: 11-28-2024 End: 11-28-2025 RHEUMATOID ARTHRITIS DIAGNOSTIC PANEL 3 RHEUMATOID ARTHRITIS DIAGNOSTIC PANEL 3 Lab Routine Pain of both shoulder joints Expected: 11/28/2024 (Approximate), Expires: 11/28/2025 [facility] Comment on above: Expected: 11/28/2024 (Approximate), Expi res: 11/28/2025 Start: 11-28-2024 End: 11-28-2024 Patient encounter procedure [facility] Comment on above: Arrived Start: 09-08-2024 Urine screening for protein Diabetes: Urine Protein Screening [facility] Start: 09-07-2024 Hemoglobin A1c measurement Diabetes: Hemoglobin A1C [facility] Start: 06-07-2024 End: 06-07-2025 Comprehensive metabolic 2000 panel - Serum or Plasma Comprehensive metabolic panel Lab Routine Type 2 diabetes mellitus without complication, without long-term current use of insulin ([facility]/HCC) Expected: 06/07/2024 (Approximate), Expires: 06/07/2025 [facility] Comment on above: Expected: 06/07/2024 (Approximate), Expi res: 06/07/2025 Start: 06-07-2024 End: 06-07-2025 Lipid 1996 panel - Serum or Plasma Lipid panel Lab Routine Pure hypercholesterolemia ([facility]/HCC) Expected: 06/07/2024 (Approximate), Expires: 06/07/2025 [facility] Comment on above: Expected: 06/07/2024 (Approximate), Expi res: 06/07/2025 Start: 06-07-2024 End: 06-07-2025 TSH W/REFLEX TO FT4 TSH W/REFLEX TO FT4 Lab Routine Type 2 diabetes mellitus without complication, without long-term current use of insulin ([facility]/HCC) Expected: 06/07/2024 (Approximate), Expires: 06/07/2025 [facility] Comment on above: Expected: 06/07/2024 (Approximate), Expi res: 06/07/2025 Start: 04-22-2024 Influenza vaccination Influenza Vaccine (#1) [facility] Start: 03-12-2024 Hemoglobin A1c measurement Diabetes: Hemoglobin A1C [facility] Start: 02-05-2024 Screening for malignant neoplasm of colon [facility] Start: 11-17-2022 Screening for malignant neoplasm of breast Mammogram [facility] Start: 1960 Screening for malignant neoplasm of colon [facility] 24 hour urine measurement [facility] Adenosine monophosphate.cyclic [Moles/volume] in Serum or Plasma [facility] Albumin [Mass/volume ] in Serum or Plasma [facility] Albumin/Globulin ratio [facility] protein B Ab [Units/volume] in Serum [facility] Chromatin Ab [Units/volume] in Serum or Plasma [facility] Electrophoresis: [id number] [facility] Electrophoresis: [id number] [facility] Electrophoresis: beta-globulin [facility] Electrophoresis: ivonne ma globulin [facility] Globulin [Mass/volum e] in Serum [facility] Histone IgG Ab [Units/volume] in Serum by Immunoassay [facility] Homogenous nuclear A b pattern [Titer] in Serum [facility] IgA [Mass/volume] in Serum or Plasma [facility] IgG [Mass/volume] in Serum or Plasma [facility] IgM [Mass/volume] in Serum or Plasma [facility] Immunofixation for Urine [facility] Jenny-1 extractable nuclear Ab [Units/volume] in Serum [facility] Measurement of monoclonal protein concentration [facility] Microalbumin/Creatin ine panel in random Urine Microalbumin / creatinine urine ratio Lab Routine Type 2 diabetes mellitus without complication, without long-term current use of insulin ([facility]) Ordered: 06/07/2024 [employer] Work Phone: Comment on above: Ordered: 06/07/2024 Nuclear Ab [Titer] i n Serum [facility] Protein [Mass/volume ] in Serum or Plasma [facility] Protein [Mass/volume ] in Urine [facility] Rheumatoid factor [Units/volume] in Serum or Plasma [facility] Serum immunofixation [facility] Sjogrens syndrome-A extractable nuclear Ab [Units/volume] in Serum [facility] Sjogrens syndrome-B extractable nuclear Ab [Units/volume] in Serum [facility] Dominguez extractable nuclear Ab [Units/volume] in Serum [facility] Thyroglobulin Ab [Units/volume] in Serum or Plasma [facility] Thyroperoxidase Ab [Units/volume] in Serum or Plasma [facility] Payers Date Payer Category Payer Private Health Insurance [id number] 2022 Unknown [id number] 1960 Unknown [id number] 1960 Unknown [id number] 1960 Unknown [id number] 1960 Unknown [id number] 1960 Unknown [id number] Unknown [id number] Social History Date Type Detail Facility Start: 06-23-2023 Tobacco smoking stat [facility] Never smoked tobacco [facility] Start: 06-23-2023 Tobacco use and exposure Smoke less tobacco non-user [facility] Start: 12-26-2023 End: 12-20-2024 Alcoholic beverage intake Ex-drinker (finding) [facility] Start: 06-24-2023 End: 12-19-2024 History of Social function [facility] Start: 06-24-2023 End: 12-19-2024 Humiliation, Afraid, Rape, and Kick questionnaire [HARK] [...] at Not on file [facility] How often to you hav e a drink containing alcohol? Monthly or less [facility] How hard is it for y ou to pay for the very basics like food, housing, medical care, and heating Somewhat hard [facility] (I/We) worried wheth er (my/our) food would run out before (I/we) got money to buy more. Never true [facility] Work Phone: Sex Female (finding) [facility] Start: 1960 Sex Assigned At Female F [facility] Functional Status Date Assessment Result Facility 12-20-2024 Patient Health [facility] ionnaire 2 item (PHQ-2) [Reported] [facility] History of Present illness Narrative 12-20-2024 Chencho Dillard MD - 12/20/2024 10:00 AM EDT Note Date & Type Note Facility 12-20-2024 History of Presen t illness Narrative Images from the original note were not included. HPI Results Additional comments: labs Last edited by Pushpa Sims LPN on 12/20/2024 9:56 AM. Subjective Patient ID: Suleman Ramirez is a 64 y.o. female who presents for Shoulder Pain and Results (labs). Shoulder Pain Patient complains of bilateral shoulder pain. The symptoms began 3 months ago. Aggravating factors: no known event. Discomfort is described as aching. Symptoms are exacerbated by overhead movements. Evaluation to date: none. Therapy to date includes: OTC analgesics which are effective. Pt remains off crestor reports it has not made a difference in the joint pain she has been having Completed labs as order Shoulder Pain Hypertension Diabetes Current Outpatient Medications on File Prior to Visit Medication Sig Dispense Refill metoprolol succinate XL (Toprol-XL) 25 MG 24 hr tablet TAKE 1 TABLET BY MOUTH IN THE MORNING and ONE TABLET BY MOUTH BEFORE bedtime 100 tablet 3 rosuvastatin (Crestor) 5 MG tablet Take 1 tablet (5 mg) by mouth Daily (Patient not taking: Reported on 12/20/2024) 90 tablet 3 No current facility-administered medications on file prior to visit. I have reviewed and reconciled the history and medication list with the patient today. Allergies Allergen Reactions Codeine Nausea Only Social History Tobacco Use Smoking status: Never [...] APPENDECTOMY SECTION, LOW TRANSVERSE HYSTERECTOMY Visit Vitals Ht 5' 3 BMI 22.32 kg/m Smoking Status Never BSA [...] breath sounds. No wheezing, rhonchi or rales. Musculoskeletal: Right shoulder: Tenderness present. Decreased range of motion. Decreased strength. Left shoulder: Tenderness present. Decreased range of motion. Decreased strength. Skin: General: Skin is warm and dry. Neurological: General: No focal deficit present. Mental Status: She is alert and oriented to person, place, and time. Psychiatric: Mood and Affect: Mood normal. Behavior: Behavior normal. Office Visit on 11/28/2024 Component Date Value Ref Range Status Hemoglobin A1C 11/28/2024 5.8 Final RHEUMATOID FACTOR (IGG) 11/28/2024 11 (H) <=6 U Final RHEUMATOID FACTOR (IGA) 11/28/2024 <5 <=6 U Final RHEUMATOID FACTOR (IGM) 11/28/2024 <5 <=6 U Final CYCLIC CITRULLINATED PEPTIDE (CCP)* 11/28/2024 <16 <20 Units Final Comment: Negative: <20 Weak Positive: 20 - 39 Moderate Positive: 40 - 59 Strong Positive: >59 SJOGREN'S ANTIBODY (SS-A) 11/28/2024 <1.0 AI Final Comment: Reference Range: < 1.0 NEG AI SJOGREN'S ANTIBODY (SS-B) 11/28/2024 <1.0 AI Final Comment: Reference Range: < 1.0 NEG AI SED RATE BY MODIFIED WESTERGREN 11/28/2024 29 < OR = 30 mm/h Final C-REACTIVE PROTEIN 11/28/2024 10.9 (H) <8.0 mg/L Final LYME DISEASE AB(IGG),BLOT 11/28/2024 NEGATIVE NEGATIVE Final 18 KD (IGG) BAND 11/28/2024 NON-REACTIVE Final 23 KD (IGG) BAND 11/28/2024 NON-REACTIVE Final 28 KD (IGG) BAND 11/28/2024 NON-REACTIVE Final 30 KD (IGG) BAND 11/28/2024 NON-REACTIVE Final 39 KD (IGG) BAND 11/28/2024 NON-REACTIVE Final 41 KD (IGG) BAND 11/28/2024 REACTIVE (A) Final 45 KD (IGG) BAND 11/28/2024 NON-REACTIVE Final 58 KD (IGG) BAND 11/28/2024 NON-REACTIVE Final 66 KD (IGG) BAND 11/28/2024 NON-REACTIVE Final 93 KD (IGG) BAND 11/28/2024 NON-REACTIVE Final Comment: As per CDC criteria, a Lyme disease IgG immunoblot must show reactivity to at least 5 of 10 specific borrelial proteins to be considered positive. Although considered negative, reactivity to fewer borrelial proteins may indicate recent B. burgdorferi infection and warrant testing of a later sample. In rare instances, reactivity may represent antibodies induced by exposure to other spirochetes. Lyme immunoblot testing should only be performed on samples from patients who have had a Positive or Equivocal result in a screening assay. Assessment/Plan Diagnoses and all orders for this visit: Pain of both shoulder joints - Ambulatory referral to Rheumatology; Future - predniSONE (Deltasone) 20 MG tablet; Take 1 tablet (20 mg) by mouth Daily for 5 days Abnormal laboratory test result - Ambulatory referral to Rheumatology; Future Pain of shoulder girdle - Ambulatory referral to Rheumatology; Future - predniSONE (Deltasone) 20 MG tablet; Take 1 tablet (20 mg) by mouth Daily for 5 days No follow-ups on file. documented in this encounter [facility] History of Present illness Narrative 11-28-2024 Chencho Dillard MD - 11/28/2024 10:30 AM EDT Note Date & Type Note Facility 11-28-2024 History of Presen t illness Narrative Images from the original note were not included. HPI Results Additional comments: labs Last edited by Pushpa Sims LPN on 11/28/2024 10:21 AM. Subjective Patient ID: Suleman Ramirez is a 64 y.o. female who presents for Hypertension, Diabetes, Results (labs), and Shoulder Pain. Diabetes Mellitus Patient presents with new onset [...] syncope, and tachypnea. Cardiovascular risk factors: hypertension. Shoulder Pain Patient complains of bilateral shoulder pain. The symptoms began 2 months ago. Aggravating factors: no known event. Discomfort is described as aching. Symptoms are exacerbated by overhead movements. Evaluation to date: none. Therapy to date includes: OTC analgesics which are effective. PATIENT TRIED STOPPING CRESTOR FOR 2 WEEKS TO SEE IF IT WOULD HELP--NO CHANGE IN SHOULDER PAIN SHE RESTARTED CRESTOR Hypertension Diabetes Shoulder Pain Current Outpatient Medications on File Prior to Visit Medication Sig Dispense Refill metoprolol succinate XL (Toprol-XL) 25 MG 24 hr tablet TAKE 1 TABLET BY MOUTH IN THE MORNING and ONE TABLET BY MOUTH BEFORE bedtime 100 tablet 3 rosuvastatin (Crestor) 5 MG tablet Take 1 tablet (5 mg) by mouth Daily 90 tablet 3 No current facility-administered medications on file prior to visit. I have reviewed and reconciled the history and medication list with the patient today. Allergies Allergen Reactions Codeine Nausea Only Social History Tobacco Use Smoking status: Never [...] SECTION, LOW TRANSVERSE HYSTERECTOMY Visit Vitals BP 130/72 Pulse 94 Ht 5' 3 Wt 126 lb SpO2 [...] breath sounds. No wheezing, rhonchi or rales. Musculoskeletal: Right shoulder: Tenderness present. Decreased range of motion. Decreased strength. Left shoulder: Tenderness present. Decreased range of motion. Decreased strength. Skin: General: Skin is warm and dry. Neurological: General: No focal deficit present. Mental Status: She is alert and oriented to person, place, and time. Psychiatric: Mood and Affect: Mood normal. Behavior: Behavior normal. Office Visit on 11/28/2024 Component Date Value Ref Range Status Hemoglobin A1C 11/28/2024 5.8 Final Office Visit on 06/07/2024 Component Date Value Ref Range Status Hemoglobin A1C 06/07/2024 5.8 Final CREATININE, RANDOM URINE 06/08/2024 70 20 - 275 mg/dL Final ALBUMIN, URINE 06/08/2024 0.6 See Note: mg/dL Final Comment: Reference Range: Reference Range Not established ALBUMIN/CREATININE RATIO, RANDOM U* 06/08/2024 9 <30 mg/g creat Final Comment: The ADA defines abnormalities in albumin excretion as follows: Albuminuria Category Result (mg/g creatinine) Normal to Mildly increased <30 Moderately increased 30-299 Severely increased > OR = 300 The ADA recommends that at least two of three specimens collected within a 3-6 month period be abnormal before considering a patient to be within a diagnostic category. Glucose 06/08/2024 116 (H) 65 - 99 mg/dL Final Comment: Fasting reference interval For someone without known diabetes, a glucose value between 100 and 125 mg/dL is consistent with prediabetes and should be confirmed with a follow-up test. BUN 06/08/2024 7 7 - 25 mg/dL Final Creatinine 06/08/2024 0.56 0.50 - 1.05 mg/dL Final EGFR 06/08/2024 103 > OR = 60 mL/min/1.73m2 Final BUN/CREATININE RATIO 06/08/2024 SEE NOTE: (calc) Final Comment: Not Reported: BUN and Creatinine are within reference range. Sodium 06/08/2024 141 135 - 146 mmol/L Final Potassium, Bld 06/08/2024 4.2 3.5 - 5.3 mmol/L Final Chloride 06/08/2024 101 98 - 110 mmol/L Final Carbon Dioxide 06/08/2024 31 20 - 32 mmol/L Final Calcium 06/08/2024 10.1 8.6 - 10.4 mg/dL Final PROTEIN, TOTAL 06/08/2024 7.9 6.1 - 8.1 g/dL Final ALBUMIN 06/08/2024 4.8 3.6 - 5.1 g/dL Final GLOBULIN 06/08/2024 3.1 1.9 - 3.7 g/dL (calc) Final ALBUMIN/GLOBULIN RATIO 06/08/2024 1.5 1.0 - 2.5 (calc) Final BILIRUBIN, TOTAL 06/08/2024 0.5 0.2 - 1.2 mg/dL Final ALKALINE PHOSPHATASE 06/08/2024 72 37 - 153 U/L Final AST 06/08/2024 23 10 - 35 U/L Final ALT 06/08/2024 21 6 - 29 U/L Final TSH W/REFLEX TO FT4 06/08/2024 1.47 0.40 - 4.50 mIU/L Final CHOLESTEROL, TOTAL 06/08/2024 190 <200 mg/dL Final HDL CHOLESTEROL 06/08/2024 61 > OR = 50 mg/dL Final TRIGLYCERIDES 06/08/2024 122 <150 mg/dL Final LDL-CHOLESTEROL 06/08/2024 107 (H) mg/dL (calc) Final Comment: Reference range: <100 Desirable range <100 mg/dL for primary prevention; <70 mg/dL for patients with CHD or diabetic patients with > or = 2 CHD risk factors. LDL-C is now calculated using the Gerald calculation, which is a validated novel method providing better accuracy than the Friedewald equation in the estimation of LDL-C. Teja SS et al. RODOLFO. 2013;310(19): 8272-5479 (http://education.[employer].co m/faq/BEV538) CHOL/HDLC RATIO 06/08/2024 3.1 <5.0 (calc) Final NON HDL CHOLESTEROL 06/08/2024 129 <130 mg/dL (calc) Final Comment: For patients with diabetes plus 1 major ASCVD risk factor, treating to a non-HDL-C goal of <100 mg/dL (LDL-C of <70 mg/dL) is considered a therapeutic option. Assessment/Plan Diagnoses and all orders for this visit: Pain of both shoulder joints - RHEUMATOID ARTHRITIS DIAGNOSTIC PANEL 3; Future - Sedimentation rate, automated; Future - C-reactive protein; Future - LYME DISEASE ANTIBODY (IGG), IMMUNOBLOT; Future - Stay off Crestor for now (she stopped it 6 weeks ago) Primary hypertension (CMS/HCC) Encounter for screening for malignant neoplasm of colon - Cologuard colon cancer screening; Future Prediabetes - POCT Glycated hemoglobin, total Follow up in about 3 weeks (around 12/19/2024) for Test/Lab Review. documented in this encounter [facility] History of Present illness Narrative 06-07-2024 Chencho Dillard MD - 06/07/2024 10:45 AM EDT Note Date & Type Note Facility 06-07-2024 History of Presen t illness Narrative Images from the original note were not included. Subjective Patient ID: Suleman Ramirez is a 63 y.o. female who presents [...] for Routine F/U. documented in this encounter [facility] Evaluation note Note Date & Type Note Facility Evaluation note Diagnosis Pure hypercholesterolemia (CMS/HCC)- Primary Pure hypercholesterolemia Type 2 diabetes mellitus without complication, without long-term current use of insulin (CMS/HCC) TIA (transient ischemic attack) Unspecified transient cerebral ischemia documented in this encounter [facility] Evaluation note Note Date & Type Note Facility Evaluation note Diagnosis Pain of both shoulder joints- Primary Primary hypertension (CMS/HCC) Unspecified essential hypertension Encounter for screening for malignant neoplasm of colon Prediabetes Other abnormal glucose documented in this encounter [facility] Evaluation note Note Date & Type Note Facility Evaluation note Diagnosis Pain of both shoulder joints- Primary Abnormal laboratory test result Other abnormal clinical finding Pain of shoulder girdle documented in this encounter [facility] Evaluation note Note Date & Type Note Facility Evaluation note No assessment information availa [facility] Work Phone: Reason for referral (narrative) Note Date & Type Note Facility Reason for referral (narrative) No reason for referral information available [facility] Work Phone: Summary Purpose Family History No Family History Records Found Relationship Condition Age at Onset Recorded Date/T gertrude father Heart disease Unknown Unknown mother Diabetes mellitus Unknown History of stroke Unknown Advance Directives No Advanced Directives Records Found Advance Directive Response Recorded Date/ Time Advance Directives No July 12:20pm Chief Complaint and Reason for Visit Chief Complaint Admit Date ELV CRP/R76.0/MYALGIA March 13, 2025 1: 30pm Additional Source Comments INFORMATION SOURCE (unrecogn ized section and content) DATE CREATED AUTHOR 01/08/2022 [facility] DATE CREATED AUTHOR AUTHOR'S ORGANIZ ATION 12/05/2024 [facility] DATE CREATED AUTHOR AUTHOR'S ORGANIZ ATION 12/25/2024 [facility] EPIC DATE CREATED AUTHOR AUTHOR'S ORGANIZ ATION 03/19/2025 [facility] Care Teams (unrecognized sec tion and content) [employer]le Relationship Specialty Start Date End Date Chencho Dillard MD [address] [place] [address] PCP - General Internal Medicine 12/28/22 Chencho Dillard MD [address] [place] [address] PCP - Medical [employer] 08/22/23 08/21/99 [employer] Relationship Specialty Start Date End Date Chencho Dillard MD [address] [place] [address] PCP - General Internal Medicine 12/28/22 Chencho Dillard MD [address] [place] [address] PCP - Medical [employer] 08/22/23 08/21/99 [employer] Relationship Specialty Start Date End Date Chencho Dillard MD [address] [place] [address] PCP - General Internal Medicine 12/28/22 Chencho Dillard MD [address] [place] [address] PCP - Medical [employer] 08/22/23 08/21/99 [employer] Relationship Specialty Start Date End Date Chencho Dillard MD [address] [facility] [address] [place] [address] PCP - General Internal Medicine 12/28/22 Chencho Dillard MD [address] [facility] [address] [place] [address] PCP - Medical [employer] 08/22/23 08/21/99 [employer] Axle Relationship Specialty Start Date End Date Chencho Dillard MD [address] [facility] [address] [place] [address] PCP - General Internal Medicine 12/28/22 Chencho Dillard MD [address] [facility] [address] [place] [address] PCP - Medical [employer] 08/22/23 08/21/99 Team Status: Active Member Role Status Dates Chencho Dillard II MD Primary Care Provider Active Team Status: Inactive Member Role Status Dates Chencho Dillard II MD Primary Care Provider Active Start: March 13, 2025 End: March 13, 2025 Shyam Montes MD Attending Provider Active St art: March 13, 2025 End: March 13, 2025 Reason for Visit (unrecogniz ed section and content) Reason Comments Diabetes Reason Comments Hypertension Diabetes Results labs Shoulder Pain Reason Comments Shoulder Pain Results labs Goals (unrecognized section and content) Goals may be documented in a n alternate section FOR RECORDS PERTAINING TO PATIENTS WHO ARE [...] BE BASED ON THE PRIMARY CLINICAL RECORDS. [facility] [employer] [facility]. provides no warranty or guarantee of the accuracy or completeness of information in this document.
== END 2025-04-17 09:47 | disposition home or self-care (01) ==
PROVIDERS: PCP Internal Medicine; Visit Provider Internal Medicine Rheumatology
DX: R79.82 Elevated C-reactive protein (CRP) (principal); M79.18 Myalgia, other site
CPT/HCPCS: 71046